=== PATIENT | male | born 1955 | race Caucasian/White ===

== ENCOUNTER → 2016-10-29 | Outpatient (CLI) | payer OTHER ==
--- NOTE | 2016-10-29 13:06 | CT ---
EXAMINATION TYPE: CT chest wo con DATE OF EXAM: 10/29/2016 1:00 PM COMPARISON: 11/24/2010 HISTORY: 61-year-old male solitary pulmonary nodule TECHNIQUE: Contiguous axial scanning of the chest without IV contrast. Coronal and sagittal reconstru ctions performed. CT DLP: 444.0 mGycm Automated exposure control for dose reduction was used. FINDINGS: The heart is normal size with trace anterior pericardial thickening/fluid. The ascending aorta is borderline ectatic at 3.6 cm. Conventional arch vessel branching anatomy is no elijah. Nonenlarged calcified and noncalcified mediastinal lymph nodes are present. No thoracic lymphadenopat hy by CT size criteria. Trace bilateral gynecomastia incidentally noted. Large calcified granuloma within the left upper lobe measuring 1.6 cm axial image 20. Smaller central ly calcified subpleural pulmonary granuloma posterior right mid to lower lung axial image 37. Both of these are unchanged. Tiny hyperdensity 2 mm pulmonary nodule peripheral left lower lobe axial image 41 likely calcified gr anuloma as well. No consolidation or pleural effusion. Tiny hiatal hernia. Visualized upper abdomen shows cholecystectomy clips and a 4 mm nonobstructive le ft midpole renal calculus as well as a calcified granuloma within the spleen. Bones: No osseous destructive process. IMPRESSION: 1. PRIOR GRANULOMATOUS DISEASE WITH 2 DOMINANT CALCIFIED GRANULOMAS IN THE LUNGS MEASURING UP TO 1.5 CM. NO SUSPICIOUS PULMONARY NODULE. 2. TINY HIATAL HERNIA AND A 4 MM NONOBSTRUCTIVE LEFT RENAL CALCULUS.
--- NOTE | 2016-10-29 13:20 | CT ---
EXAMINATION TYPE: CT abdomen pelvis w con DATE OF EXAM: 10/29/2016 1:00 PM COMPARISON: 03/04/2016 HISTORY: 61-year-old male with mid Left sided pain in the mornings. TECHNIQUE: Contiguous axial scanning of the abdomen and pelvis following administration of 100 ml Omn ipaque 300 IV contrast. Delayed images through the kidneys and coronal/sagittal reconstructions perf ormed. CT DLP: 1458.8 mGycm Automated exposure control for dose reduction was used. FINDINGS: The chest is reported separately. Tiny hiatal hernia. Stable 1 cm enhancing focus anterior hepatic dome suggestive of flash filling hemangioma or vascular shunting. Also stable 1.4 cm hypodense area within the superior caudate lobe. Stability from December 03, 2015 sugge sts a benign etiology such as a complicated cyst or area of focal fat. Portal venous system is patent. No biliary ductal dilatation. Cholecystectomy clips. Adrenal glands, right kidney, spleen with calcified granuloma, and pancreas show no gross abnormality . A 4 mm nonobstructive left midpole renal calculus is noted. Prominent 8 mm peripancreatic lymph node in the upper abdomen remains stable suggesting a chronic pos tinflammatory etiology. A few scattered prominent but nonenlarged mesenteric lymph nodes are also st able. No dilated small bowel, free fluid, or free air. The previously mentioned focal thickening along the ascending colon is stable to decreased in the interval. Oral contrast has progressed to the splenic f lexure. There is mild scattered stool and a couple diverticula in the left colon. No pericolonic infl ammatory change. Bladder is urine distended. Prostate gland mildly enlarged at 4.6 cm wide. No abnormal fluid collecti on in the pelvis or pelvic lymphadenopathy. Bones: Mild degenerative changes at the hips and SI joints. Additional degenerative disc disease at L 5-S1. No osseous destructive process. IMPRESSION: 1. NO ACUTE INFLAMMATORY PROCESS IDENTIFIED TO EXPLAIN THE PATIENT'S PAIN. 2. A 1.4 CM HYPODENSE LESION IN THE CAUDATE LOBE OF THE LIVER IS STABLE SUGGESTING A BENIGN ETIOLOGY SUCH A COMPLICATED CYST OR AREA OF FOCAL FAT. 3. THE PREVIOUS FOLD THICKENING ALONG THE ASCENDING COLON IS STABLE TO SLIGHTLY DECREASED MAKING THIS OF QUESTIONABLE CLINICAL SIGNIFICANCE. ROUTINE SCREENING COLONOSCOPY CAN MONITOR IN THE EVENT OF UND ERLYING POLYPS. 4. SMALL HIATAL HERNIA, NONOBSTRUCTIVE 4 MM LEFT RENAL CALCULUS AND MILD PROSTATOMEGALY.
== END | disposition home or self-care (01) ==
LOC: RADCTMAIN 12:27
PROVIDERS: ATTEND Family Medicine
DX: K76.9 Liver disease, unspecified (principal); K44.9 Diaphragmatic hernia without obstruction or gangrene; N20.0 Calculus of kidney; N40.0 Benign prostatic hyperplasia without lower urinary tract symptoms; R91.1 Solitary pulmonary nodule
CPT/HCPCS: 71250; 74177; Q9967

== ENCOUNTER → 2017-10-21 | Outpatient (CLI) | payer OTHER ==
--- NOTE | 2017-10-21 13:39 | US ---
EXAMINATION TYPE: US extremity nonvasculr ltd LT DATE OF EXAM: 10/21/2017 COMPARISON: NONE CLINICAL HISTORY: S60.552A Superficial foreign body of left hand; wood sliver left palm pad at base o f thumb x 4 days; foreign body unable to be extracted at physician's office US findings: at left palm pad at base of first digit is linear hyperechoic area noted initially on Tr ansverse view showing posterior shadowing. Hyperechoic linear area = 1.3cm long and better imaged wit h harmonics feature and noted within 0.5cm from skin line. IMPRESSION: Linear foreign body is confirmed as detailed above located in the superficial aspect of the palmar muscles at area of clinical concern in the left hand.
== END | disposition home or self-care (01) ==
LOC: RADUSWWP 12:50
PROVIDERS: ATTEND Family Medicine
DX: S60.552A Superficial foreign body of left hand, initial encounter (principal)

== ENCOUNTER → 2018-05-23 | Outpatient (CLI) | payer OTHER ==
--- NOTE | 2018-05-23 14:35 | CT ---
EXAMINATION TYPE: CT sinus wo con DATE OF EXAM: 05/23/2018 COMPARISON: None HISTORY: Patient complains of left side sinus pressure and known nasal polyps. CT DLP: 624.5 mGycm. Automated Exposure Control for Dose Reduction was Utilized. TECHNIQUE: CT scan of the sinuses is performed without contrast, axial images are obtained, coronal r eformatted images are also reviewed. FINDINGS: There is mild mucosal thickening involving the maxillary sinuses with moderate changes invo lving the ethmoid air cells. There is a nasal septal deviation. Rounded soft tissue densities in the posterior nasopharynx on the right may been the basis of polyps correlate clinically to exclude other etiologies. Frontal sinus is clear. Very mild mucosal thickening involving the sphenoid sinus. Oropharynx and nasopharynx symmetric. Visualized parotid glands within normal limits. Osseous structures intact. No air-fluid levels. Intraorbital structures are symmetric. The ostiomeatal complex is patent bilater ally on the coronal images. Visualized portion of mastoid air cells show mild mastoiditis. IMPRESSION: 1. Moderate ethmoidal chronic sinusitis. 2. Mild maxillary chronic sinusitis. 3. Soft tissue density in the posterior nasopharynx on the right may represent sinonasal polyposis. C orrelate clinically to exclude other etiologies including mucosal lesion. 4. Mild chronic mastoiditis
== END | disposition home or self-care (01) ==
LOC: RADCTMAIN 11:03
PROVIDERS: ATTEND Otolaryngology
DX: J32.0 Chronic maxillary sinusitis (principal); J32.2 Chronic ethmoidal sinusitis; H70.10 Chronic mastoiditis, unspecified ear
CPT/HCPCS: 70486

== ENCOUNTER 2018-06-15 04:03 | Emergency (ER) | payer OTHER ==
[2018-06-15] MEDS ORDERED: ONDANSETRON 4 MG/2 ML VIAL IVP STA (04:28)
--- NOTE | 2018-06-15 04:50 | ED ---
Abdominal Pain HPI - General Chief Complaint: Abdominal Pain Stated Complaint: abd pain Time Seen by Provider: 06/15/18 04:17 Source: patient Mode of arrival: ambulatory Limitations: no limitations - History of Present Illness Initial Comments: Campbell is a 63-year-old gentleman who presents the emergency department today for evaluation of severe left lower quadrant abdominal pain. Patient reports that he was in his usual state of health yesterday, around 8 PM he developed left lower quadrant abdominal pain, pain is persisted throughout the night, around 2 AM he attempted to give himself an enema and had a small bowel movement with no relief in his pain. At which time he decided to come to the ER for further evaluation. Pain is described as sharp, stabbing, constant with no relieving factors. It's associated with nausea and a few episodes of nonbloody nonbilious emesis. Pain radiates from the left lower quadrant to the left flank is not associated with any dysuria or hematuria. Patient has no history of kidney stones that he is aware of. Patient does report he had a colonoscopy a couple years ago and was advised that he had diverticulosis but is never had diverticulitis. Patient denies any associated fevers, chills, chest pain palpitations or shortness of breath. - Related Data Home Medications Medication Instructions Recorded Confirmed Olmesartan [Benicar] 20 mg PO QAM 09/18/14 06/15/18 Omeprazole [PriLOSEC] 40 mg PO AC-BRKFST 09/18/14 06/15/18 Simvastatin [Zocor] 20 mg PO DAILY 09/18/14 06/15/18 Aspirin 81 mg PO DAILY 03/21/15 06/15/18 Ibuprofen [Motrin] 600 mg PO DAILY PRN 03/21/15 06/15/18 traMADol HCl [Ultram] 50 mg PO Q6H PRN 03/21/15 06/15/18 Previous Rx's Medication Instructions Recorded Ibuprofen [Motrin] 800 mg PO TID #30 tab 06/15/18 Ondansetron [Zofran ODT] 4 mg PO Q8HR #12 tab 06/15/18 Tamsulosin [Flomax] 0.4 mg PO DAILY #7 cap 06/15/18 Allergies Allergy/AdvReac Type Severity Reaction Status Date / Time codeine AdvReac Nausea & Verified 06/15/18 04:08 Vomiting hydrocodone bitartrate AdvReac Nausea & Verified 06/15/18 04:08 [From [place]] Vomiting Review of Systems ROS Statement: Those systems with pertinent positive or pertinent negative responses have been documented in the HPI. ROS Other: All systems not noted in ROS Statement are negative. Past Medical History Past Medical History: GERD/Reflux, Hyperlipidemia, Hypertension Additional Past Medical History / Comment(s): pneumothorax History of Any Multi-Drug Resistant Organisms: None Reported Past Surgical History: Cholecystectomy, Orthopedic Surgery Additional Past Surgical History / Comment(s): left thumb ligament reattached, rt rot cuff repair Past Anesthesia/Blood Transfusion Reactions: No Reported Reaction Past Psychological History: No Psychological Hx Reported Smoking Status: Former smoker Past Alcohol Use History: None Reported Past Drug Use History: None Reported - Past Family History Father Family Medical History: Coronary Artery Disease (CAD) Mother Family Medical History: Cancer General Exam - General Exam Comments Initial Comments: Physical Exam GENERAL: Uncomfortable appearing gentleman HENT: Normocephalic, Atraumatic. EYES: PERRL, EOMI PULMONARY: Unlabored respirations. No audible rales rhonchi or wheezing was noted. CARDIOVASCULAR: There is a regular rate and rhythm without any murmurs gallops or rubs. ABDOMEN: Soft with tenderness to the left lower quadrant, no tenderness in the left flank or suprapubic region SKIN: Skin is flushed there is no lesions or rashes : Deferred NEUROLOGIC: Patient is alert and oriented x3. Moving all extremities spontaneously MUSCULOSKELETAL: Normal extremities with adequate strength and full range of motion. No lower extremity swelling or edema. No calf tenderness. PSYCHIATRIC: Normal psychiatric evaluation. Limitations: no limitations Limitations: no limitations Course Vital Signs 06/15/18 04:04 Temperature 97.8 F Pulse Rate 99 Respiratory 20 Rate Blood Pressure 151/90 O2 Sat by Pulse 100 Oximetry Medical Decision Making - Medical Decision Making Patient was seen and evaluated, history is obtained from the patient as well as what bedside Patient presenting with severe left lower quadrant abdominal pain not relieved by a bowel movement History and physical exam are concerning for possible diverticulitis as the patient does report a history of diverticulosis identified on colonoscopy Labs and imaging were ordered Zofran was ordered for nausea Declined any narcotic pain medication as he has a history of severe reactions involving nausea vomiting and he would prefer to avoid this CT resulted with a 4 mm distal stone with mild hydro- Labs were unremarkable Toradol was ordered for pain She was reevaluated reports that the Toradol has really knocked out his pain is feeling much better, nausea is resolved. Patient was updated on findings of 4 mm stone. Patient agreeable for plan for discharge home, again declines any oral narcotics, will be prescribed Motrin, Flomax, Zofran ordered return parameters were discussed. All questions pertaining care were answered patient was discharged home in stable condition. - Lab Data Result diagrams: 06/15/18 04:38 06/15/18 04:38 Lab Results 06/15/18 06/15/18 06/15/18 Range/Units 04:38 04:38 04:38 WBC 6.4 (3.8-10.6) k/uL RBC 5.26 (4.30-5.90) m/uL Hgb 16.1 (13.0-17.5) gm/dL Hct 47.6 (39.0-53.0) % MCV 90.6 (80.0-100.0) fL MCH 30.5 (25.0-35.0) pg MCHC 33.7 (31.0-37.0) g/dL RDW 12.0 (11.5-15.5) % Plt Count 201 (150-450) k/uL Neutrophils % 60 % Lymphocytes % 26 % Monocytes % 7 % Eosinophils % 5 % Basophils % 1 % Neutrophils # 3.8 (1.3-7.7) k/uL Lymphocytes # 1.6 (1.0-4.8) k/uL Monocytes # 0.5 (0-1.0) k/uL Eosinophils # 0.3 (0-0.7) k/uL Basophils # 0.0 (0-0.2) k/uL Sodium 141 (137-145) mmol/L Potassium 3.8 (3.5-5.1) mmol/L Chloride 107 (98-107) mmol/L Carbon Dioxide 25 (22-30) mmol/L Anion Gap 9 mmol/L BUN 20 (9-20) mg/dL Creatinine 1.13 (0.66-1.25) mg/dL Est GFR (CKD-EPI)AfAm 80 (>60 ml/min/1.73 sqM) Est GFR (CKD-EPI)NonAf 69 (>60 ml/min/1.73 sqM) Glucose 118 H (74-99) mg/dL Plasma Lactic Acid Jimmy 1.8 (0.7-2.0) mmol/L Calcium 9.3 (8.4-10.2) mg/dL Total Bilirubin 0.5 (0.2-1.3) mg/dL AST 20 (17-59) U/L ALT 34 (21-72) U/L Alkaline Phosphatase 57 (38-126) U/L Total Protein 6.4 (6.3-8.2) g/dL Albumin 3.9 (3.5-5.0) g/dL Amylase 40 (30-110) U/L Lipase 101 (23-300) U/L Urine Color Urine Appearance (Clear) Urine pH (5.0-8.0) Ur Specific [place] (1.001-1.035) Urine Protein (Negative) Urine Glucose (UA) (Negative) Urine Ketones (Negative) Urine Blood (Negative) Urine Nitrite (Negative) Urine Bilirubin (Negative) Urine Urobilinogen (<2.0) mg/dL Ur Leukocyte Esterase (Negative) Urine RBC (0-5) /hpf Urine WBC (0-5) /hpf Urine Mucus (None) /hpf 06/15/18 Range/Units 05:41 WBC (3.8-10.6) k/uL RBC (4.30-5.90) m/uL Hgb (13.0-17.5) gm/dL Hct (39.0-53.0) % MCV (80.0-100.0) fL MCH (25.0-35.0) pg MCHC (31.0-37.0) g/dL RDW (11.5-15.5) % Plt Count (150-450) k/uL Neutrophils % % Lymphocytes % % Monocytes % % Eosinophils % % Basophils % % Neutrophils # (1.3-7.7) k/uL Lymphocytes # (1.0-4.8) k/uL Monocytes # (0-1.0) k/uL Eosinophils # (0-0.7) k/uL Basophils # (0-0.2) k/uL Sodium (137-145) mmol/L Potassium (3.5-5.1) mmol/L Chloride (98-107) mmol/L Carbon Dioxide (22-30) mmol/L Anion Gap mmol/L BUN (9-20) mg/dL Creatinine (0.66-1.25) mg/dL Est GFR (CKD-EPI)AfAm (>60 ml/min/1.73 sqM) Est GFR (CKD-EPI)NonAf (>60 ml/min/1.73 sqM) Glucose (74-99) mg/dL Plasma Lactic Acid Jimmy (0.7-2.0) mmol/L Calcium (8.4-10.2) mg/dL Total Bilirubin (0.2-1.3) mg/dL AST (17-59) U/L ALT (21-72) U/L Alkaline Phosphatase (38-126) U/L Total Protein (6.3-8.2) g/dL Albumin (3.5-5.0) g/dL Amylase (30-110) U/L Lipase (23-300) U/L Urine Color Yellow Urine Appearance Clear (Clear) Urine pH 5.0 (5.0-8.0) Ur Specific [place] 1.050 H (1.001-1.035) Urine Protein Negative (Negative) Urine Glucose (UA) Negative (Negative) Urine Ketones Negative (Negative) Urine Blood Moderate H (Negative) Urine Nitrite Negative (Negative) Urine Bilirubin Negative (Negative) Urine Urobilinogen <2.0 (<2.0) mg/dL Ur Leukocyte Esterase Negative (Negative) Urine RBC 49 H (0-5) /hpf Urine WBC 32 H (0-5) /hpf Urine Mucus Rare H (None) /hpf Disposition Clinical Impression: Kidney stone on left side Disposition: HOME SELF-CARE Condition: Good Prescriptions: Ibuprofen [Motrin] 800 mg PO TID #30 tab Ondansetron [Zofran ODT] 4 mg PO Q8HR #12 tab Tamsulosin [Flomax] 0.4 mg PO DAILY #7 cap Is patient prescribed a controlled substance at d/c from ED?: No Referrals: Sade Esteves MD [Primary Care Provider] - 1-2 days
[2018-06-15 04:52] LABS: Basophils % (A) 1 %; Eosinophils # (A) 0.3 k/uL (0-0.7); Eosinophils % (A) 5 %; HCT 47.6 % (39.0-53.0); HGB 16.1 gm/dL (13.0-17.5); Lymphocytes # (A) 1.6 k/uL (1.0-4.8); Lymphocytes % (A) 26 %; MCH 30.5 pg (25.0-35.0); MCHC 33.7 g/dL (31.0-37.0); MCV 90.6 fL (80.0-100.0); Mean Platelet Volume 7.2; Monocytes # (A) 0.5 k/uL (0-1.0); Monocytes % (A) 7 %; Neutrophils # (A) 3.8 k/uL (1.3-7.7); Neutrophils % (A) 60 %; Platelet Count 201 k/uL (150-450); RBC 5.26 m/uL (4.30-5.90); WBC 6.4 k/uL (3.8-10.6)
[2018-06-15 05:04] LABS: Albumin 3.9 g/dL (3.5-5.0); Calcium 9.3 mg/dL (8.4-10.2); Potassium 3.8 mmol/L (3.5-5.1); Total Bilirubin 0.5 mg/dL (0.2-1.3); Total Protein 6.4 g/dL (6.3-8.2)
--- NOTE | 2018-06-15 05:09 | CT ---
EXAMINATION TYPE: CT abdomen pelvis w con DATE OF EXAM: 06/15/2018 COMPARISON: 10/29/2016 HISTORY: LLQ abdominal pain CT DLP: 976.6 mGycm Automated exposure control for dose reduction was used. TECHNIQUE: Helical acquisition of images was performed from the lung bases through the pelvis. CONTRAST: Performed without Oral Contrast and with IV Contrast, patient injected with 100mL mL of Isovue 300. FINDINGS: There is some mild atelectasis at the posterior lung bases. Heart size is normal. There is no pericar dial effusion. There is no pleural effusion. Liver shows no focal defect. There are clips from cholec ystectomy. Bile ducts are not dilated. There is mild hiatal hernia. Spleen has normal size. There are small calcified splenic granuloma. There is no evidence of pancreatic mass. There is no adrenal mass. Kidneys show satisfactory contrast opacification. There is left side hydron ephrosis and hydroureter. There is 4 mm calculus in the distal left ureter. Bladder distends smoothly . There is no inguinal hernia. There is no free fluid in the pelvis. Prostate measures 4.8 cm. I see no intestinal wall thickening. There are no dilated loops. Appendix is not definitely seen. The re is no sign of appendicitis. There is 4 mm calculus in the lateral left kidney. There is 3 mm calcu gil lateral right kidney. I see no bony destructive process. There is narrowing of L5-S1 disc space. There is no mesenteric edema or adenopathy. IMPRESSION: Bilateral renal calculi. Obstructing calculus in the distal left ureter with hydronephrosis. Obstruct ion appears new compared to old exam. IMPRESSION:
[2018-06-15] MEDS ORDERED: KETOROLAC 30 MG/ML 1 ML VIAL IVP STA (05:14)
[2018-06-15 05:51] LABS: Appearance,Urine Clear (Clear); Bilirubin,Urine Negative (Negative); Blood,Urine Moderate (Negative); Color,Urine Yellow; Glucose,Urine (UA) Negative (Negative); Ketones,Urine Negative (Negative); Leukocyte Esterase,Urine Negative (Negative); Mucus,Urine Rare /hpf; Nitrite,Urine Negative (Negative); Protein,Urine Negative (Negative); RBC,Urine 49 /hpf (0-5); Urobilinogen,Urine <2.0 mg/dL (<2.0); WBC,Urine 32 /hpf (0-5)
[2018-06-15 06:02] VITALS: BP 131/94; PULSE 863; RESP 16; TEMP 98.4
== END 2018-06-15 06:05 | disposition home or self-care (01) ==
LOC: EC 04:03
DX: N13.2 Hydronephrosis with renal and ureteral calculous obstruction (principal); K21.9 Gastro-esophageal reflux disease without esophagitis; E78.5 Hyperlipidemia, unspecified; I10 Essential (primary) hypertension; Z79.82 Long term (current) use of aspirin; Z79.899 Other long term (current) drug therapy; Z88.5 Allergy status to narcotic agent; Z90.49 Acquired absence of other specified parts of digestive tract; Z87.891 Personal history of nicotine dependence
CPT/HCPCS: 36415; 80053; 82150; 83605; 83690; 85025; 81001; 87040; 74177; 99284; 96374; 96375; J2405; J1885; Q9967

== ENCOUNTER → 2018-12-19 | Outpatient (CLI) | payer OTHER ==
--- NOTE | 2018-12-19 08:19 | CT ---
EXAMINATION TYPE: CT chest w con DATE OF EXAM: 12/19/2018 COMPARISON: 10/29/2016 and 11/24/2010 HISTORY: 63-year-old male abnormal findings lung field, Pulmonary nodules TECHNIQUE: Contiguous axial scanning of the chest after the administration of 100 mL of Isovue 300. Coronal/sagittal reconstructions performed. CT DLP: 569mGycm. Automatic exposure control utilized for a dose reduction. FINDINGS: Heart normal size with small anterior pericardial fluid, probably physiologic. Ascending aorta mildly ectatic at 3.6 cm. Convention arch vessel branching anatomy. Scattered nonenlarged mediastinal lymph nodes are present. Some of these show interval decrease in si ze from 10/29/2016, for example, a prevascular space lymph node measuring 4 mm versus 6 cm, previously . A few of the lymph nodes are calcified compatible with prior granulomatous disease. Stable pulmonary nodule posterior left upper lobe showing dense uniform calcification measuring 1.5 c m compatible with a calcified granuloma. Also, stable 9 mm subpleural centrally calcified pulmonary n odule posterior right lower lobe also compatible with a calcified granuloma. No consolidation or pleural effusion. Tiny hiatal hernia. Visualized upper abdomen shows cholecystectomy clips and a calcified granuloma wi thin the spleen. Bones: No osseous destructive process. IMPRESSION: 1. Redemonstrated changes of prior granulomatous disease. No new suspicious pulmonary nodule. 2. Tiny hiatal hernia.
== END | disposition home or self-care (01) ==
LOC: RADCTMAIN 06:36
PROVIDERS: ATTEND Family Medicine
DX: R91.8 Other nonspecific abnormal finding of lung field (principal); K44.9 Diaphragmatic hernia without obstruction or gangrene
CPT/HCPCS: 71260; Q9967

== ENCOUNTER → 2020-12-19 | Outpatient (CLI) | payer MEDICARE, OTHER ==
--- NOTE | 2020-12-19 15:11 | CT ---
EXAMINATION TYPE: CT sinus wo con DATE OF EXAM: 12/19/2020 COMPARISON: Sinus CT May 23, 2018 HISTORY: Chronic sinusitis and polyps. Sinus blockage for years per patient. CT DLP: 657 mGycm. Automated Exposure Control for Dose Reduction was Utilized. TECHNIQUE: CT scan of the sinuses is performed without contrast, axial images are obtained, coronal r eformatted images are also reviewed. FINDINGS: Mild mucosal thickening bilateral maxillary sinuses greatest inferiorly slightly more promi nent from prior study. Moderate mucosal thickening and patchy opacification bilateral ethmoid sinuses more prominent from prior study. Mild mucosal thickening and possible tiny mucous retention cysts an d/or polyps inferior right frontal sinus slightly worsened from prior. Left frontal sinus clear. Sphe noid sinuses show mild to minimal peripheral mucosal thickening bilaterally similar to prior. The ost iomeatal complex is patent on the right on coronal image 30 but occluded on the left. Visualized portion of mastoid air cells show persistent patchy opacification and sclerosis of the rig ht mastoid air cells unchanged from prior favoring product of chronic mastoiditis. The globes are in tact bilaterally. IMPRESSION: Suspect some acute bilateral ethmoid sinus disease on background chronic paranasal sinus disease. Findings worse from 2018 study as detailed above.
== END | disposition home or self-care (01) ==
LOC: RADCTMAIN 14:20
PROVIDERS: ATTEND Otolaryngology
DX: J32.4 Chronic pansinusitis (principal)
CPT/HCPCS: 70486

== ENCOUNTER 2021-01-22 05:36 | Day surgery (SDC) | payer MEDICARE, OTHER ==
[2021-01-21 09:22] VITALS: BMI 28.2
[~2021-01-22 05:36] MED LIST: DEXAMETHASONE SOD PHOSPHATE 4 MG/ML 1 ML VIAL IV ONE; DEXAMETHASONE SOD PHOSPHATE 4 MG/ML 1 ML VIAL IV PRN; FAMOTIDINE 20 MG/2 ML VIAL IV PRN; LIDOCAINE 1% (10MG/ML) FOR IV START INTRADERMA PRN; MIDAZOLAM 2 MG/2 ML VIAL IV PRN; ONDANSETRON 4 MG/2 ML VIAL IVP ONE; ONDANSETRON 4 MG/2 ML VIAL IVP PRN; OXYMETAZOLINE 0.05% NASL SPRAY 1 SPRAY BOTTLE EA NOSTRIL PRN
[2021-01-22] MEDS: LACTATED RINGERS 1,000 ML IV SCH ×2 (06:32→09:40)
[2021-01-22] MEDS ORDERED: SUCCINYLCHOLINE CHLORIDE 100 MG/5 ML SYR IV ONE (06:58)
[2021-01-22] MEDS ORDERED: GLYCOPYRROLATE 0.2 MG/ML 2 ML VIAL ONE (06:58)
[2021-01-22] MEDS ORDERED: ceFAZolin 1,000 MG VIAL ONE (06:58)
[2021-01-22] MEDS ORDERED: PROPOFOL 10 MG/ML 20 ML VIAL IV ONE (06:58)
[2021-01-22] MEDS ORDERED: LIDOCAINE 1% INJ 10MG/ML (20 ML MDV) ONE (06:58)
[2021-01-22] MEDS ORDERED: .MORPHINE SULFATE (INJ) 10 MG/ML SYRINGE ONE (06:58)
[2021-01-22] MEDS ORDERED: DENOSUMAB 60 MG/ML 1 ML SYRINGE SQ ONE (06:58)
[2021-01-22] MEDS ORDERED: MIDAZOLAM 2 MG/2 ML VIAL ONE (06:58)
[2021-01-22] MEDS ORDERED: HYDROmorphone 0.5 MG/0.5 ML SYRINGE IVP PRN (07:00)
[2021-01-22] MEDS ORDERED: LIDOCAINE 1%-EPI 1:100,000 20 ML VIAL SQ ONE ×2 (07:13)
[2021-01-22] MEDS ORDERED: BACITRACIN ZINC 500 UNIT/GM OINT 28.4 GM TUBE TOPICAL ONE ×2 (07:23→07:29)
--- NOTE | 2021-01-22 08:12 | P.OP ---
Date of Procedure: 01/22/21 Preoperative Diagnosis: Deviated nasal septum Inferior turbinate hypertrophy Chronic sinusitis Sinonasal polyposis Postoperative Diagnosis: Same Procedure(s) Performed: Septoplasty Outfractured and submucous resection inferior turbinates Bilateral endoscopic sinus surgery with polypectomy including bilateral maxillary antrostomy with removal of tissue from the maxillary sinus, bilateral anterior and posterior ethmoidectomy, bilateral frontal sinusotomy with exploration and removal of tissue Anesthesia: LYRIC Surgeon: Eris Husain Estimated Blood Loss (ml): 10 Pathology: other (Nasal septal bone and cartilage and sinus contents) Condition: stable Disposition: PACU Indications for Procedure: This 65-year-old white male with chronic congestion nasally as well as chronic nasal airway obstruction and facial pain and pressure with recurrent sinusitis Operative Findings: Nasal septum deviated left the inferior turbinates are hypertrophied bilaterally moderate-sized polyps lateral medial to the middle turbinates bilaterally, obstruction of the ostial complexes bilaterally polyps in the maxillary sinuses and mucosal thickening throughout the anterior posterior ethmoid sinuses as well as frontal sinuses Description of Procedure: The patient was brought into the operative suite and placed in a supine position. The patient underwent induction of general anesthesia with oral endotracheal intubation without difficulty. The patient was prepped and draped in the usual aseptic fashion with the orbits in the operating field for monitoring to the case and the computed tomography scan was on the computer screen for review throughout the case. 1% lidocaine with 1 :100,000 epinephrine was infused submucosally into both sides of the nasal septum as well as the lateral nasal wall and anterior tips of the middle turbinates. While this was taking vasoconstrictive effect the inferior turbinates were infractured with Edwards elevator and partial submucous resection of the inferior turbinates was performed with a portion of the submucosal soft tissue and the inferior turbinate bone removed with Coblation device. The inferior turbinates were then outfractured with the Edwards elevator. A left hemitransfixion incision was then made with the mucoperichondrial and mucoperiosteal flap on the left elevated. The bony cartilaginous junction was disarticulated and the mucoperiosteal flap on the right was elevated. Bony n warren septal deformities were removed with Alice forceps and an inferior cartilaginous strip was removed leaving a full 1.5 cm caudal strut. Checking intranasally this corrected the nasoseptal deformities and the hemitransfixion incision was closed with a running 4-0 chromic suture. Full 0 endoscopic examination is performed bilaterally. Beginning on the left, the middle turbinate was medialized. The maxillary ostium was located with a ballpoint probe and an infundibulotomy was performed followed by uncinectomy. The maxillary antrostomy was enlarged at the expense of the anterior and posterior fontanelle taking care anteriorly not to injure the lacrimal bone. The maxillary sinus was evaluated with 30 and 70 endoscope .[Abnormal appearing tissue was removed from the maxillary sinus]. Anterior and posterior ethmoidectomy were then performed from anterior to posterior to the level of the skull base. The roof of the anterior ethmoid air cells were then cleaned from posterior to anterior using up-biting Blakesley forceps. The frontal sinus ostium was then located and opened with up-biting Blakesley forceps and curved suction and then thickened mucosa removed under 30 and 70 endoscopic evaluation. The sinus was then explored.. Attention was then turned to the right where the procedures were followed as they had been on the left. [Nasopore nasal dressing was placed in the middle meatus bilaterally under direct visualization]. Bilateral Nur airway splints coated with bacitracin ointment were placed and sutured transseptally with a 4-0 nylon suture. The patient was suctioned in oral gastric fashion and was allowed to emerge from general anesthesia having tolerated procedure well and was extubated in the operating suite and transferred to the postoperative recovery area in satisfactory condition.
[2021-01-22 08:26] VITALS: TEMP 97.3
[2021-01-22] MEDS ORDERED: diphenhydrAMINE 50 MG/ML 1 ML VIAL IVP ONE (08:53)
[2021-01-22] MEDS ORDERED: PROMETHAZINE INJ 25 MG/ML 1 ML VIAL IVPB ONE (09:18)
[2021-01-22 11:39] VITALS: BP 137/77; PULSE 70; RESP 16
== END 2021-01-22 14:03 | disposition home or self-care (01) ==
LOC: OR 05:36
PROVIDERS: ATTEND Otolaryngology
DX: J34.2 Deviated nasal septum (principal); J34.3 Hypertrophy of nasal turbinates; J32.9 Chronic sinusitis, unspecified; J33.8 Other polyp of sinus; E78.00 Pure hypercholesterolemia, unspecified; G21.9 Secondary parkinsonism, unspecified; I10 Essential (primary) hypertension; Z79.899 Other long term (current) drug therapy; Z79.82 Long term (current) use of aspirin; Z88.5 Allergy status to narcotic agent; Z87.891 Personal history of nicotine dependence; K44.9 Diaphragmatic hernia without obstruction or gangrene; E78.5 Hyperlipidemia, unspecified; J45.909 Unspecified asthma, uncomplicated
CPT/HCPCS: 88305; 88300; 31267; 31253; J2250; J1200; J1100; J2550; J2270; J2405; J0690; J2001; J0897; J0330; J2704; J1170; J1790

== ENCOUNTER 2021-04-17 10:42 | Emergency (ER) | payer MEDICARE, OTHER ==
[2021-04-17 10:47] VITALS: RESP 18; TEMP 97.8
[2021-04-17] MEDS ORDERED: KETOROLAC 15 MG/ML 1 ML VIAL IVP STA ×2 (11:04→13:59)
[2021-04-17 11:16] LABS: Basophils % (A) 1 %; Eosinophils # (A) 0.2 k/uL (0-0.7); Eosinophils % (A) 4 %; HCT 51.8 % (39.0-53.0); HGB 17.9 gm/dL (13.0-17.5); Lymphocytes # (A) 0.7 k/uL (1.0-4.8); Lymphocytes % (A) 18 %; MCH 31.5 pg (25.0-35.0); MCHC 34.6 g/dL (31.0-37.0); MCV 91.1 fL (80.0-100.0); Mean Platelet Volume 7.3; Monocytes # (A) 0.3 k/uL (0-1.0); Monocytes % (A) 7 %; Neutrophils # (A) 2.9 k/uL (1.3-7.7); Neutrophils % (A) 69 %; Platelet Count 219 k/uL (150-450); RBC 5.69 m/uL (4.30-5.90); RDW 12.6 % (11.5-15.5); WBC 4.2 k/uL (3.8-10.6)
[2021-04-17 11:26] LABS: Albumin 4.2 g/dL (3.5-5.0); Calcium 9.6 mg/dL (8.4-10.2); Potassium 4.1 mmol/L (3.5-5.1); Total Bilirubin 0.8 mg/dL (0.2-1.3); Total Protein 7.1 g/dL (6.3-8.2)
--- NOTE | 2021-04-17 11:26 | XR ---
EXAMINATION TYPE: XR KUB DATE OF EXAM: 04/17/2021 COMPARISON: NONE HISTORY: Pain TECHNIQUE: One view abdominal series FINDINGS: The osseous structures are intact. The bowel gas pattern is nonspecific. Surgical clips right upper quadrant. Hypertrophic changes of the acetabulum can be associated with femoral acetabular impingemen t. No definite suspicious calcifications noted.. IMPRESSION: 1. Nonspecific abdomen.
--- NOTE | 2021-04-17 11:41 | ED ---
Abdominal Pain HPI - General Chief Complaint: Abdominal Pain Stated Complaint: poss kidney stone Time Seen by Provider: 04/17/21 10:46 Source: patient, RN notes reviewed Mode of arrival: ambulatory Limitations: no limitations - History of Present Illness Initial Comments: 65-year-old male with a prior history kidney stones and states for the past couple days she's had some pain over the right lateral flank area no nausea no vomiting fevers chills sweats no hematuria. He states it feels similar to previous kidney stone pain. Somewhat dull achy in nature. Approximately 7/10 severity but complains no other modifying factors no fevers chills sweats MD Complaint: abdominal pain, flank pain - Related Data Home Medications Medication Instructions Recorded Confirmed Simvastatin [Zocor] 20 mg PO HS 09/18/14 04/17/21 Baclofen 10 mg PO TID PRN 01/21/21 04/17/21 Losartan Potassium [Cozaar] 100 mg PO DAILY 01/21/21 04/17/21 Omeprazole [PriLOSEC] 20 mg PO AC-BRKFST 01/21/21 04/17/21 Acetaminophen Tab [Tylenol Tab] 1,000 mg PO Q6HR PRN 04/17/21 04/17/21 Sildenafil [Revatio] 20 mg PO DAILY PRN 04/17/21 04/17/21 Tamsulosin HCl [Flomax] 0.4 mg PO ONCE 04/17/21 04/17/21 Allergies Allergy/AdvReac Type Severity Reaction Status Date / Time fentanyl Allergy Nausea & Verified 04/17/21 11:11 Vomiting tramadol Allergy Nausea & Verified 04/17/21 11:11 Vomiting codeine AdvReac Nausea & Verified 04/17/21 11:11 Vomiting hydrocodone bitartrate AdvReac Nausea & Verified 04/17/21 11:11 [From [place]] Vomiting Review of Systems ROS Statement: Those systems with pertinent positive or pertinent negative responses have been documented in the HPI. ROS Other: All systems not noted in ROS Statement are negative. Past Medical History Past Medical History: Cancer, GERD/Reflux, Hyperlipidemia, Hypertension, Osteoarthritis (OA) Additional Past Medical History / Comment(s): pneumothorax, skin cancer-basal cell History of Any Multi-Drug Resistant Organisms: None Reported Past Surgical History: Cholecystectomy, Orthopedic Surgery Additional Past Surgical History / Comment(s): left thumb ligament reattached,rt rotator cuff repair, left knee surgery, basal cell removal - face Past Anesthesia/Blood Transfusion Reactions: No Reported Reaction Past Psychological History: No Psychological Hx Reported Smoking Status: Former smoker - Past Family History Mother Family Medical History: Cancer General Exam - General Exam Comments Initial Comments: This is a well-developed well-nourished awake alert oriented times 3 male Limitations: no limitations General appearance: alert, anxious Head exam: Present: atraumatic, normocephalic, normal inspection Eye exam: Present: normal appearance, PERRL, EOMI. Absent: scleral icterus, conjunctival injection, periorbital swelling ENT exam: Present: normal exam, mucous membranes moist Neck exam: Present: normal inspection, full ROM. Absent: tenderness, meningismus, lymphadenopathy Respiratory exam: Present: normal lung sounds bilaterally. Absent: respiratory distress, wheezes, rales, rhonchi, stridor Cardiovascular Exam: Present: regular rate, normal rhythm, normal heart sounds. Absent: systolic murmur, diastolic murmur, rubs, gallop, clicks GI/Abdominal exam: Present: soft, tenderness (Review my flank tenderness on the right no step-off no crepitation no guarding rebound masses or bruits), normal bowel sounds. Absent: distended, guarding, rebound, rigid Rectal exam: Present: deferred Extremities exam: Present: normal inspection, full ROM, normal capillary refill. Absent: tenderness, pedal edema, joint swelling, calf tenderness Back exam: Present: normal inspection, full ROM. Absent: CVA tenderness (R), CVA tenderness (L) Neurological exam: Present: alert, oriented X3, CN II-XII intact Psychiatric exam: Present: normal affect, normal mood Skin exam: Present: warm, dry, intact, normal color. Absent: rash Course Vital Signs 04/17/21 10:43 Temperature 97.8 F Pulse Rate 86 Respiratory 18 Rate Blood Pressure 150/88 O2 Sat by Pulse 97 Oximetry Medical Decision Making - Medical Decision Making Patient on reexamination was pain-free after a period time he does have Flomax at home he'll continue use and does have pain medication at home we did discuss the findings he will follow-up with his doctor return when necessary - Lab Data Result diagrams: 04/17/21 11:11 04/17/21 11:11 Lab Results 04/17/21 04/17/21 04/17/21 Range/Units 11:11 11:11 12:25 WBC 4.2 (3.8-10.6) k/uL RBC 5.69 (4.30-5.90) m/uL Hgb 17.9 H (13.0-17.5) gm/dL Hct 51.8 (39.0-53.0) % MCV 91.1 (80.0-100.0) fL MCH 31.5 (25.0-35.0) pg MCHC 34.6 (31.0-37.0) g/dL RDW 12.6 (11.5-15.5) % Plt Count 219 (150-450) k/uL MPV 7.3 Neutrophils % 69 % Lymphocytes % 18 % Monocytes % 7 % Eosinophils % 4 % Basophils % 1 % Neutrophils # 2.9 (1.3-7.7) k/uL Lymphocytes # 0.7 L (1.0-4.8) k/uL Monocytes # 0.3 (0-1.0) k/uL Eosinophils # 0.2 (0-0.7) k/uL Basophils # 0.0 (0-0.2) k/uL Sodium 139 (137-145) mmol/L Potassium 4.1 (3.5-5.1) mmol/L Chloride 105 (98-107) mmol/L Carbon Dioxide 26 (22-30) mmol/L Anion Gap 8 mmol/L BUN 18 (9-20) mg/dL Creatinine 1.10 (0.66-1.25) mg/dL Est GFR (CKD-EPI)AfAm 81 (>60 ml/min/1.73 sqM) Est GFR (CKD-EPI)NonAf 70 (>60 ml/min/1.73 sqM) Glucose 124 H (74-99) mg/dL Calcium 9.6 (8.4-10.2) mg/dL Total Bilirubin 0.8 (0.2-1.3) mg/dL AST 23 (17-59) U/L ALT 21 (4-49) U/L Alkaline Phosphatase 92 (38-126) U/L Total Protein 7.1 (6.3-8.2) g/dL Albumin 4.2 (3.5-5.0) g/dL Amylase 63 (30-110) U/L Lipase 97 (23-300) U/L Urine Color Yellow Urine Appearance Cloudy (Clear) Urine pH 5.5 (5.0-8.0) Ur Specific Rebuck 1.030 (1.001-1.035) Urine Protein 1+ H (Negative) Urine Glucose (UA) Negative (Negative) Urine Ketones Negative (Negative) Urine Blood Large H (Negative) Urine Nitrite Negative (Negative) Urine Bilirubin Negative (Negative) Urine Urobilinogen <2.0 (<2.0) mg/dL Ur Leukocyte Esterase Negative (Negative) Urine RBC >182 H (0-5) /hpf Urine WBC 7 H (0-5) /hpf Amorphous Sediment Rare H (None) /hpf Urine Mucus Few H (None) /hpf - Radiology Data Radiology results: report reviewed (Imaging reviewed evidence of a 4 mm stone in the distal right ureter with some minimal hydronephrosis and hydroureter patient complete report), image reviewed Disposition Clinical Impression: Kidney stone on right side, Renal colic on right side, Hematuria Disposition: HOME SELF-CARE Condition: Good Instructions (If sedation given, give patient instructions): Flank Pain (ED), Kidney Stones (ED), Renal Colic (ED) Additional Instructions: Home medications we discussed Is patient prescribed a controlled substance at d/c from ED?: No Referrals: Sade Esteves MD [Primary Care Provider] - 1-2 days
[2021-04-17 12:56] LABS: Amorphous Sediment,Urine Rare /hpf; Appearance,Urine Cloudy (Clear); Bilirubin,Urine Negative (Negative); Blood,Urine Large (Negative); Color,Urine Yellow; Glucose,Urine (UA) Negative (Negative); Ketones,Urine Negative (Negative); Leukocyte Esterase,Urine Negative (Negative); Mucus,Urine Few /hpf; Nitrite,Urine Negative (Negative); PH, Urine 5.5 (5.0-8.0); Protein,Urine 1+ (Negative); RBC,Urine >182 /hpf (0-5); Urobilinogen,Urine <2.0 mg/dL (<2.0); WBC,Urine 7 /hpf (0-5)
--- NOTE | 2021-04-17 13:04 | CT ---
EXAMINATION TYPE: CT abdomen pelvis wo con DATE OF EXAM: 04/17/2021 HISTORY: Right flank pain. History of kidney stones. CT DLP: 794.6 mGycm. Automated Exposure Control for Dose Reduction was Utilized. TECHNIQUE: CT scan of the abdomen and pelvis is performed without oral or IV contrast. COMPARISON: CT abdomen and pelvis June 15, 2018 FINDINGS: Within the limitations of a non-contrast study, the following observations are made. LUNG BASES: Stable 9 mm calcified subpleural nodule or granuloma posterior right lower lobe axial soren ge 4. Dependent atelectasis in the bases. Smaller calcified granuloma left lower lobe axial image 11 towards the periphery. LIVER/GB: Cholecystectomy clips are redemonstrated. Liver is heterogeneously hypodense consistent wit h diffuse fatty infiltration. PANCREAS: No significant abnormality is seen. SPLEEN: Single constipation anterior spleen redemonstrated. ADRENALS: No significant abnormality is seen. KIDNEYS: There is 1 to 2 mm nonobstructing left renal calculus mid to lower pole level coronal image 64. There is 1 to 2 mm nonobstructing right renal calculus mid to lower pole level coronal image 54. No or left-sided hydronephrosis. There is 4 mm distal right ureter calculus axial image 132 causing m ild right-sided hydronephrosis. No intraluminal calculi in the poorly distended bladder BOWEL: Stomach poorly distended and thus suboptimally evaluated. Occasional distal diverticula. No cox spicious small or large bowel dilatation. GENITAL ORGANS: No gross abnormality seen. LYMPH NODES: No greater than 1cm abdominal or pelvic lymph nodes are appreciated. OSSEOUS STRUCTURES: Severe disc space narrowing lumbosacral junction redemonstrated. OTHER: No significant additional abnormality is seen. IMPRESSION: There is 4 mm distal right ureter calculus causing mild right-sided hydronephrosis.
[2021-04-17 14:49] VITALS: BP 129/94; PULSE 84
== END 2021-04-17 14:49 | disposition home or self-care (01) ==
LOC: EC 10:42
DX: N13.2 Hydronephrosis with renal and ureteral calculous obstruction (principal); E78.5 Hyperlipidemia, unspecified; I10 Essential (primary) hypertension; K21.9 Gastro-esophageal reflux disease without esophagitis; Z87.891 Personal history of nicotine dependence; Z88.8 Allergy status to other drugs, medicaments and biological substances; Z79.899 Other long term (current) drug therapy
CPT/HCPCS: 36415; 80053; 82150; 83690; 85025; 81001; 74018; 74176; 99284; 96374; J1885

== ENCOUNTER 2023-01-20 22:52 | Emergency (ER) | payer MEDICARE, OTHER ==
[2023-01-20] MEDS ORDERED: METOCLOPRAMIDE 5 MG/ML 2 ML VIAL IVP STA (22:55)
[2023-01-20] MEDS ORDERED: SODIUM CHLORIDE 0.9% 1,000 ML IV STA (22:55)
[2023-01-20] MEDS ORDERED: PANTOPRAZOLE 40 MG/10 ML VIAL IVP STA (22:55)
[2023-01-20] MEDS ORDERED: SODIUM CHLORIDE 0.9% 2,000 ML IV STA (22:55)
[2023-01-20 22:57] VITALS: TEMP 97.2
[2023-01-20] MEDS ORDERED: diphenhydrAMINE 50 MG/ML 1 ML VIAL IVP STA (22:57)
--- NOTE | 2023-01-20 23:27 | XR ---
EXAM: XR Abdomen, 1 View CLINICAL HISTORY: [email or web address] XR Reason: abdominal pain TECHNIQUE: Frontal supine view of the abdomen/pelvis. COMPARISON: No relevant prior studies available. FINDINGS: Gastrointestinal tract: Nonobstructive bowel gas pattern. IMPRESSION: Nonobstructive bowel gas pattern.
--- NOTE | 2023-01-20 23:30 | XR ---
EXAM: XR Chest, 1 View CLINICAL HISTORY: [email or web address] XR Reason: abdominal pain TECHNIQUE: Frontal view of the chest. COMPARISON: No relevant prior studies available. FINDINGS: Lungs: Low lung volumes with bronchovascular congestion. No overt edema or consolidation. Pleural space: No pleural effusion. No pneumothorax. Heart: Unremarkable. No cardiomegaly. IMPRESSION: No acute findings in the chest.
[2023-01-20 23:33] LABS: ALT 139 U/L (4-49); AST 218 U/L (17-59); African American GFR (CKD) 59 (>60 ml/min/1.73 sqM); Albumin 3.5 g/dL (3.5-5.0); Alkaline Phosphatase 144 U/L (38-126); Anion Gap 8 mmol/L; Blood Urea Nitrogen 18 mg/dL (9-20); Calcium 8.4 mg/dL (8.4-10.2); Carbon Dioxide 24 mmol/L (22-30); Chloride 106 mmol/L (98-107); Glucose 152 mg/dL (74-99); Non-African American GFR(CKD) 51 (>60 ml/min/1.73 sqM); Potassium 4.2 mmol/L (3.5-5.1); Sodium 138 mmol/L (137-145); Total Bilirubin 2.2 mg/dL (0.2-1.3); Total Protein 5.9 g/dL (6.3-8.2)
[2023-01-20 23:35] LABS: Basophils % (A) 0 %; Eosinophils # (A) 0.1 k/uL (0-0.7); Eosinophils % (A) 1 %; HGB 16.7 gm/dL (13.0-17.5); Lymphocytes % (A) 16 %; MCH 30.5 pg (25.0-35.0); MCHC 33.4 g/dL (31.0-37.0); MCV 91.5 fL (80.0-100.0); Monocytes # (A) 0.6 k/uL (0-1.0); Monocytes % (A) 5 %; Neutrophils # (A) 9.5 k/uL (1.3-7.7); Neutrophils % (A) 76 %; Platelet Count 271 k/uL (150-450); RBC 5.47 m/uL (4.30-5.90); WBC 12.5 k/uL (3.8-10.6)
[2023-01-20 23:43] LABS: Amylase 1732 U/L (30-110)
[2023-01-20 23:45] LABS: Prothrombin Time 10.3 sec (9.0-12.0)
[2023-01-20 23:47] LABS: Partial Thromboplastin Time 19.4 sec (22.0-30.0)
--- NOTE | 2023-01-20 23:53 | CT ---
EXAM: CT Angiography Chest With Intravenous Contrast CLINICAL HISTORY: [email or web address].REASON CT Reason: abd pain/chest pain epigastric. sudden onset. TECHNIQUE: Axial computed tomographic angiography images of the chest with intravenous contrast. CTDI is 37.14 mGy and DLP is 1206.9 mGy-cm. This CT exam was performed using one or more of the following dose reduction techniques: automated exposure control, adjustment of the mA and/or kV according to patient size, and/or use of iterative reconstruction technique. MIP reconstructed images were created and reviewed. COMPARISON: No relevant prior studies available. FINDINGS: Pulmonary arteries: No pulmonary embolism. Aorta: Normal caliber aorta. No dissection. Lungs: Atelectasis in the lungs. No evidence of pneumonia. No interstitial edema. Calcified granulomas in the right lower lobe and left upper lobe. Pleural space: Unremarkable. Heart: Heart size is normal. No pericardial effusion. Bones/joints: No acute fracture. Soft tissues: Unremarkable. Lymph nodes: Unremarkable. IMPRESSION: Normal caliber aorta. No dissection. No acute abnormality. EXAM: CT Angiography Abdomen and Pelvis With Intravenous Contrast CLINICAL HISTORY: ITS.REASON CT Reason: abd pain/chest pain epigastric. sudden onset. TECHNIQUE: Axial computed tomographic angiography images of the abdomen and pelvis with intravenous contrast. CTDI is 37.14 mGy and DLP is 1206.9 mGy-cm. This CT exam was performed using one or more of the following dose reduction techniques: automated exposure control, adjustment of the mA and/or kV according to patient size, and/or use of iterative reconstruction technique. MIP reconstructed images were created and reviewed. COMPARISON: No relevant prior studies available. FINDINGS: VASCULATURE: Aorta: Normal caliber aorta. No aneurysm or dissection. Celiac trunk and mesenteric arteries: No acute findings. No occlusion or significant stenosis. Renal arteries: No acute findings. No occlusion or significant stenosis. Iliac arteries: No acute findings. No occlusion or significant stenosis. Lung bases: Unremarkable. No mass. No consolidation. ABDOMEN: Liver: Unremarkable. No mass. Gallbladder and bile ducts: Status post cholecystectomy. No ductal dilation. Pancreas: Mild fat stranding around the pancreas. No ductal dilation. Spleen: Unremarkable. No splenomegaly. Adrenals: Unremarkable. No mass. Kidneys and ureters: Unremarkable. No hydronephrosis. No solid mass. Stomach and bowel: Circumferential mucosal thickening and inflammation of the duodenum consistent with duodenitis. No obstruction. PELVIS: Appendix: No findings to suggest acute appendicitis. Bladder: Unremarkable. No mass. Reproductive: Unremarkable as visualized. ABDOMEN and PELVIS: Intraperitoneal space: Unremarkable. No significant fluid collection. No free air. Bones/joints: No acute fracture. No dislocation. Soft tissues: Unremarkable. Lymph nodes: Unremarkable. No enlarged lymph nodes. IMPRESSION: 1. Circumferential mucosal thickening and inflammation of the duodenum consistent with duodenitis. No visualized perforated ulcer. 2. Mild fat stranding around the pancreas. Some of this may be artifactual secondary to motion. Correlate with lipase for mild pancreatitis.
[2023-01-21 00:05] LABS: Lipase >20000 U/L (23-300)
[2023-01-21] MEDS ORDERED: KETOROLAC 15 MG/ML 1 ML VIAL IVP STA (00:05)
[2023-01-21] MEDS ORDERED: MORPHINE SULFATE 4 MG/ML SYRINGE IVP STA (00:20)
[2023-01-21] MEDS ORDERED: SODIUM CHLORIDE 0.9% 1,000 ML IV STA (00:46)
--- NOTE | 2023-01-21 00:49 | ED ---
General Adult HPI - General Chief complaint: Abdominal Pain Stated complaint: Chest Pain Time Seen by Provider: 01/20/23 22:55 Source: patient, EMS, RN notes reviewed, old records reviewed Mode of arrival: EMS Limitations: no limitations - History of Present Illness Initial comments: Patient is a 67-year-old male with past medical history remarkable for kidney stones, cholecystectomy, hypertension, skin cancer who presents emergency Department complaining of sudden onset epigastric abdominal pain. States this occurred approximately 3 hours prior to arrival. Has been having continuous somewhat bilious emesis that has been nonbloody since that time. Denies any constipation or blood in the stool but states he has had some loose bowel movements over the last few days. Denies any dysuria or hematuria. Denies any shortness of breath but does endorse chest pain because of the epigastric abdominal pain. States he has not felt this pain before. This is different than his kidney stone pain. He presents for further evaluation at this time. D eclines all pain medications initially because he states he has ALLERGIES to them. He experiences nausea and vomiting when he takes them. No anaphylaxis. - Related Data Home Medications Medication Instructions Recorded Confirmed Simvastatin [Zocor] 20 mg PO HS 09/18/14 04/17/21 Baclofen 10 mg PO TID PRN 01/21/21 04/17/21 Losartan Potassium [Cozaar] 100 mg PO DAILY 01/21/21 04/17/21 Omeprazole [PriLOSEC] 20 mg PO AC-[id number] 01/21/21 04/17/21 Acetaminophen Tab [Tylenol Tab] 1,000 mg PO Q6HR PRN 04/17/21 04/17/21 Sildenafil [Revatio] 20 mg PO DAILY PRN 04/17/21 04/17/21 Tamsulosin HCl [Flomax] 0.4 mg PO ONCE 04/17/21 04/17/21 Allergies Allergy/AdvReac Type Severity Reaction Status Date / Time fentanyl Allergy Nausea & Verified 01/20/23 22:58 Vomiting tramadol Allergy Nausea & Verified 01/20/23 22:58 Vomiting codeine AdvReac Nausea & Verified 01/20/23 22:58 Vomiting hydrocodone bitartrate AdvReac Nausea & Verified 01/20/23 22:58 [From [facility]] Vomiting Review of Systems ROS Statement: Those systems with pertinent positive or pertinent negative responses have been documented in the HPI. Review of Systems: CONST: Denies fever EYES: Denies blurry vision ENT: Denies nasal congestion C/V: Endorses chest pain RESP: Denies shortness of breath GI: Endorses abdominal pain : Denies dysuria SKIN: Denies rash. MSK: Denies joint pain. NEURO: Denies headache ROS Other: All systems not noted in ROS Statement are negative. Past Medical History Past Medical History: Cancer, GERD/Reflux, Hyperlipidemia, Hypertension, Osteoarthritis (OA) Additional Past Medical History / Comment(s): pneumothorax, skin cancer-basal cell History of Any Multi-Drug Resistant Organisms: None Reported Past Surgical History: Cholecystectomy, Orthopedic Surgery Additional Past Surgical History / Comment(s): left thumb ligament reattached,rt rotator cuff repair, left knee surgery, basal cell removal - face Past Anesthesia/Blood Transfusion Reactions: No Reported Reaction Past Psychological History: No Psychological Hx Reported Smoking Status: Former smoker - Past Family History Mother Family Medical History: Cancer General Exam - General Exam Comments Initial Comments: General: Presents in severe distress secondary to abdominal pain. HEAD: Normal with no signs of head trauma. EYES: PERRLA, EOMI, conjunctiva normal, no discharge. ENT: Hearing grossly intact, normal oropharynx. RESPIRATORY: Clear breath sounds bilaterally. No wheezes, rales, or rhonchi. C/V: Tachycardic with regular rhythm.. S1 and S2 auscultated, no edema, peripheral pulses 2+ and intact throughout ABD: Abdomen soft, nondistended, tender to palpation in the epigastric region. Guarding. No peritoneal signs. No rebound tenderness. No flank tenderness. No lower abdominal pain. EXT: Normal range of motion, no obvious deformity SKIN: No rashes or lesions observed on exposed skin. NEURO: Alert and oriented 4. No obvious deficits. Limitations: no limitations Course Vital Signs 01/20/23 01/21/23 22:53 01:27 Temperature 97.2 F L Pulse Rate 103 H 100 Respiratory 22 20 Rate Blood Pressure 102/57 104/69 O2 Sat by Pulse 96 97 Oximetry Medical Decision Making - Medical Decision Making Was pt. sent in by a medical professional or institution (, PA, CRITICAL SYSTEMS TECHNICIAN, urgent care, hospital, or shelter...) When possible be specific @ -No Did you speak to anyone other than the patient for history (EMS, parent, family, police, friend...)? What history was obtained from this source @ -No Did you review nursing and triage notes (agree or disagree)? Why? @ -I reviewed and agree with nursing and triage notes Were old charts reviewed (outside hosp., previous admission, EMS record, old EKG, old radiological studies, urgent care reports/EKG's, shelter records)? Report findings @ -Old CT imaging was reviewed from last few years to evaluate for any evidence of aortic aneurysm or dissection previously. Differential Diagnosis (chest pain, altered mental status, abdominal pain women, abdominal pain men, vaginal bleeding, weakness, fever, dyspnea, syncope, headache, dizziness, GI bleed, back pain, seizure, CVA, palpatations, mental health, musculoskeletal)? @ -Differential Abdominal Pain Men: Appendicitis, cholecystitis, diverticulosis, ischemic bowel, pancreatitis, hepatitis, UTI, gastroenteritis, AAA, incarcerated hernia, bowel obstruction, constipation, inflammatory bowel, hepatitis, peptic ulcer disease, splenic in farction, perforated viscus, testicular torsion, this is not meant to be an all- inclusive list Differential Chest Pain: Stable Angina, Unstable Angina, STEMI, NSTEMI Aortic Dissection, Pneumothorax, M usculoskeletal, Esophageal Spasm GERD, Cholecystitis, Pancreatitis, Zoster, this is not meant to be an all-inclusive list. EKG interpreted by me (3pts min.). @ -As above X-rays interpreted by me (1pt min.). @ -Chest x-ray reveals no obvious acute cardiopulmonary process. The mediastinum does appear slightly more widened compared to old chest x-rays in our system. Abd x-ray shows no obvious acute abdominal process. CT interpreted by me (1pt min.). @ -CT shows no evidence of aortic injury in the chest abdomen or pelvis. It does reveal findings of duodenitis as well as pancreatitis. No obvious abscess seen. U/S interpreted by me (1pt. min.). @ -None done What testing was considered but not performed or refused? (CT, X-rays, U/S, labs)? Why? @ -None What meds were considered but not given or refused? Why? @ -I did initially offer analgesia medications which were declined. Eventually the patient did accept them. Did you discuss the management of the patient with other professionals (professionals i.e. , PA, CRITICAL SYSTEMS TECHNICIAN, lab, RT, psych nurse, social media intern, facilities clerk, teacher, traffic control officer, case sealer)? Give summary @ -Discussed with on-call surgeon Dr. Renteria as we do not have on-call GI and he recommended transfer for the acute pancreatitis for GI evaluation. I spoke with the accepting physician Dr. Lopez at [facility] who was in agreement with the plan. Was smoking cessation discussed for >3mins.? @ -No Was critical care preformed (if so, how long)? @ -Yes, 37 minutes. Were there social determinants of health that impacted care today? How? (Homelessness, low income, unemployed, alcoholism, drug addiction, transportation, low edu. Level, literacy, decrease access to med. care, senior living, r ehab)? @ -No Was there de-escalation of care discussed even if they declined (Discuss DNR or withdrawal of care, Hospice)? DNR status @ -No What co-morbidities impacted this encounter? (DM, HTN, Smoking, COPD, CAD, Cancer, CVA, ARF, Chemo, Hep., AIDS, mental health diagnosis, sleep apnea, morbid obesity)? @ -None Was patient admitted / discharged? Hospital course, mention meds given and route, prescriptions, significant lab abnormalities, going to OR and other pertinent info. @ -Based on the patient's presentation and physical exam, he presents with severe abdominal pain and epigastric lower sternal chest pain. Onset 3 Hours Prior to Arrival with Diffuse Nonbilious Nonbloody Emesis. We Will Obtain Abdominal Laboratory Studies. Patient Was Initially Mildly Hypotensive in the Field but Was Responding to Fluids. He Will Receive a Total of 2 L Fluid Bolus and Be Placed on Maintenance Fluids.Patient will be given IV Protonix, Reglan, Benadryl, 1 L fluid bolus in addition to the 1 L fluid bolus it is already going in from EMS. Patient's blood pressure is improving. Is mildly tachycardic. I offered him pain medications the patient does have a history of nausea and vomiting from narcotics and he refuses all pain meds at this time. Patient's labs are remarkable for a mild leukocytosis of 12. Patient has an elevated creatinine that is mild of 1.42. Lactic acid is 2.9 likely secondary to diffuse nausea and vomiting. Patient has elevated total bilirubin of 2.2, AST and ALT of 218 and 139, alk phos 144. Troponin undetectable. Patient has significant elevations in his pancreatic enzymes with an amylase of 1700 and a lipase greater than 20,000. Patient's imaging revealed no evidence of aortic catastrophe. Patient does have acute pancreatitis as well as mild duodenitis. X-rays were unremarkable. On reevaluation patient is requesting morphine and Toradol at this time which will be provided. I updated him on his results. He requires admission to the hospital for symptomatic treatment. 2 elevations in his hepatobiliary labs, I cannot necessarily rule out an obstruction, however he has had a cholecystectomy for multiple years, and there is no evidence of ductal dilation on CT. We do not have GI services at our facility. I spoke with our surgeon on-call Dr. James to see if he is comfortable managing this patient but he was in agreement that GI services would be best for evaluation. I do agree with this assessment. We will continue fluid hydration. We will transfer to [facility]. I spoke with their ER physician Dr. Lopez who accepted the patient. Undiagnosed new problem with uncertain prognosis? @ -No Drug Therapy requiring intensive monitoring for toxicity (Heparin, Nitro, Insulin, Cardizem)? @ -No Were any procedures done? @ -No Diagnosis/symptom? @ -pancreatitis, dehydration, nausea and vomiting, abdominal pain Acute, or Chronic, or Acute on Chronic? @ -Acute Uncomplicated (without systemic symptoms) or Complicated (systemic symptoms)? @ -Complicated Side effects of treatment? @ -none Exacerbation, Progression, or Severe Exacerbation] @ -no Poses a threat to life or bodily function? @ -Yes - Lab Data Result diagrams: 01/20/23 22:59 01/20/23 22:59 Lab Results 01/20/23 01/20/23 01/20/23 Range/Units 22:59 22:59 22:59 WBC 12.5 H (3.8-10.6) k/uL RBC 5.47 (4.30-5.90) m/uL Hgb 16.7 (13.0-17.5) gm/dL Hct 50.0 (39.0-53.0) % MCV 91.5 (80.0-100.0) fL MCH 30.5 (25.0-35.0) pg MCHC 33.4 (31.0-37.0) g/dL RDW 12.0 (11.5-15.5) % Plt Count 271 (150-450) k/uL MPV 8.0 Neutrophils % 76 % Lymphocytes % 16 % Monocytes % 5 % Eosinophils % 1 % Basophils % 0 % Neutrophils # 9.5 H (1.3-7.7) k/uL Lymphocytes # 2.0 (1.0-4.8) k/uL Monocytes # 0.6 (0-1.0) k/uL Eosinophils # 0.1 (0-0.7) k/uL Basophils # 0.0 (0-0.2) k/uL PT 10.3 (9.0-12.0) sec INR 1.0 (<1.2) APTT 19.4 L (22.0-30.0) sec Sodium 138 (137-145) mmol/L Potassium 4.2 (3.5-5.1) mmol/L Chloride 106 (98-107) mmol/L Carbon Dioxide 24 (22-30) mmol/L Anion Gap 8 mmol/L BUN 18 (9-20) mg/dL Creatinine 1.42 H (0.66-1.25) mg/dL Est GFR (CKD-EPI)AfAm 59 (>60 ml/min/1.73 sqM) Est GFR (CKD-EPI)NonAf 51 (>60 ml/min/1.73 sqM) Glucose 152 H (74-99) mg/dL Lactic Ac Sepsis Rflx Plasma Lactic Acid Jimmy (0.7-2.0) mmol/L Calcium 8.4 (8.4-10.2) mg/dL Total Bilirubin 2.2 H (0.2-1.3) mg/dL AST 218 H (17-59) U/L ALT 139 H (4-49) U/L Alkaline Phosphatase 144 H (38-126) U/L Troponin I (0.000-0.034) ng/mL Total Protein 5.9 L (6.3-8.2) g/dL Albumin 3.5 (3.5-5.0) g/dL Amylase 1732 H* (30-110) U/L Lipase >35957 H (23-300) U/L 01/20/23 01/20/23 01/20/23 Range/Units 22:59 22:59 23:48 WBC (3.8-10.6) k/uL RBC (4.30-5.90) m/uL Hgb (13.0-17.5) gm/dL Hct (39.0-53.0) % MCV (80.0-100.0) fL MCH (25.0-35.0) pg MCHC (31.0-37.0) g/dL RDW (11.5-15.5) % Plt Count (150-450) k/uL MPV Neutrophils % % Lymphocytes % % Monocytes % % Eosinophils % % Basophils % % Neutrophils # (1.3-7.7) k/uL Lymphocytes # (1.0-4.8) k/uL Monocytes # (0-1.0) k/uL Eosinophils # (0-0.7) k/uL Basophils # (0-0.2) k/uL PT (9.0-12.0) sec INR (<1.2) APTT (22.0-30.0) sec Sodium (137-145) mmol/L Potassium (3.5-5.1) mmol/L Chloride (98-107) mmol/L Carbon Dioxide (22-30) mmol/L Anion Gap mmol/L BUN (9-20) mg/dL Creatinine (0.66-1.25) mg/dL Est GFR (CKD-EPI)AfAm (>60 ml/min/1.73 sqM) Est GFR (CKD-EPI)NonAf (>60 ml/min/1.73 sqM) Glucose (74-99) mg/dL Lactic Ac Sepsis Rflx Y Plasma Lactic Acid Jimmy 2.9 H* (0.7-2.0) mmol/L Calcium (8.4-10.2) mg/dL Total Bilirubin (0.2-1.3) mg/dL AST (17-59) U/L ALT (4-49) U/L Alkaline Phosphatase (38-126) U/L Troponin I <0.012 (0.000-0.034) ng/mL Total Protein (6.3-8.2) g/dL Albumin (3.5-5.0) g/dL Amylase (30-110) U/L Lipase (23-300) U/L - EKG Data -: EKG Interpreted by Al EKG Comments: 12-lead Electrocardiogram Interpretation Note EKG was reviewed and interpreted by myself. 12-lead ECG performed at 2253 is interpreted by me as revealing sinus tachycardia with PVCs at a rate of 100 beats per minute. Kingsley is normal. GA interval is 190 ms, QRS duration is 70 ms, QTc is 448 ms.. There were no ST or T wave abnormalities to suggest myocardial ischemia or injury. R wave progression across the precordium was satisfactory. By my interpretation this EKG is non-diagnostic for acute ischemia. Critical Care Time Critical Care Time: Yes Total Critical Care Time: 37 Disposition Clinical Impression: Acute pancreatitis, Nausea and vomiting, Abdominal pain, Dehydration Disposition: OTHER INSTITUTION NOT DEFINED Condition: Serious Referrals: Sade Esteves MD [Primary Care Provider] - 1-2 days Time of Disposition: 00:42 - Out of Hospital Transfer - Req. Specs Out of Hospital Transfer - Requested Specifics: Other Emergency Center (transferred for GI evaluation at [facility] for acute pancreatitis as we do not have GI services here.)
[2023-01-21 01:31] VITALS: BP 104/69; PULSE 100; RESP 20
== END 2023-01-21 01:31 | disposition other institution (70) ==
LOC: EC 22:52
DX: K85.90 Acute pancreatitis without necrosis or infection, unspecified (principal); E86.0 Dehydration; K21.9 Gastro-esophageal reflux disease without esophagitis; I10 Essential (primary) hypertension; E78.5 Hyperlipidemia, unspecified; M19.90 Unspecified osteoarthritis, unspecified site; Z79.1 Long term (current) use of non-steroidal anti-inflammatories (NSAID); Z79.899 Other long term (current) drug therapy; Z88.5 Allergy status to narcotic agent; Z88.8 Allergy status to other drugs, medicaments and biological substances; Z87.891 Personal history of nicotine dependence
CPT/HCPCS: 36415; 93005; 80053; 82150; 83605; 83690; 84484; 85025; 85610; 85730; 71045; 74018; 71275; 74174; 99291; 96374; 96375 ×4; 96361 ×2; J2270; J1200; J2765; J1885; C9113; Q9967

== ENCOUNTER 2023-02-09 10:49 | Emergency (ER) | payer MEDICARE, OTHER ==
[2023-02-09 11:13] VITALS: TEMP 98.6
[2023-02-09] MEDS ORDERED: SODIUM CHLORIDE 0.9% 1,000 ML IV ONE (12:45)
[2023-02-09] MEDS ORDERED: SODIUM CHLORIDE 0.9% 500 ML 500 ML IV ONE (12:45)
--- NOTE | 2023-02-09 12:48 | ED ---
General Adult HPI - General Chief complaint: Arrhythmia/Palpitations Stated complaint: irregular heart beat Time Seen by Provider: 02/09/23 12:00 Source: patient, RN notes reviewed, old records reviewed Mode of arrival: wheelchair Limitations: no limitations - History of Present Illness Initial comments: This is a 67-year-old male presents emergency Department with a past medical history significant for pancreatitis which thrown into his stomach and patient needed to be put on a PEG tube after surgery patient's been in multiple time for increasing pain and increasing pancreatic enzymes. Patient states more recently he's been unable to tolerate tube feedings and is feeling weaker and is constantly nauseous and occasionally vomiting. Patient also is noticing his heart beat has been irregular and his nurse agreed that he is having Her beat every once a while and recommended he come to the emergency department to be evaluated. Patient denies chest pain difficulty breathing shortness of breath. Patient denies any pain currently. Patient states he's not at the moment nauseous. Patient denies lightheadedness or dizziness he does state he was feeling stronger and his lungs as to feeds were increasing but now that did not is feeling a little weaker. Patient denies any fever chills - Related Data Home Medications Medication Instructions Recorded Confirmed Simvastatin [Zocor] 20 mg PO HS 09/18/14 04/17/21 Baclofen 10 mg PO TID PRN 01/21/21 04/17/21 Losartan Potassium [Cozaar] 100 mg PO DAILY 01/21/21 04/17/21 Omeprazole [PriLOSEC] 20 mg PO AC-BRKFST 01/21/21 04/17/21 Acetaminophen Tab [Tylenol Tab] 1,000 mg PO Q6HR PRN 04/17/21 04/17/21 Sildenafil [Revatio] 20 mg PO DAILY PRN 04/17/21 04/17/21 Tamsulosin HCl [Flomax] 0.4 mg PO ONCE 04/17/21 04/17/21 Previous Rx's Medication Instructions Recorded Ondansetron [Zofran] 4 mg PO Q8HR PRN #20 tab 02/09/23 Allergies Allergy/AdvReac Type Severity Reaction Status Date / Time fentanyl Allergy Nausea & Verified 02/09/23 11:12 Vomiting tramadol Allergy Nausea & Verified 02/09/23 11:12 Vomiting codeine AdvReac Nausea & Verified 02/09/23 11:12 Vomiting hydrocodone bitartrate AdvReac Nausea & Verified 02/09/23 11:12 [From [place]] Vomiting Review of Systems ROS Statement: Those systems with pertinent positive or pertinent negative responses have been documented in the HPI. ROS Other: All systems not noted in ROS Statement are negative. Past Medical History Past Medical History: Cancer, GERD/Reflux, Hyperlipidemia, Hypertension, Osteoarthritis (OA) Additional Past Medical History / Comment(s): pneumothorax, skin cancer-basal cell History of Any Multi-Drug Resistant Organisms: None Reported Past Surgical History: Cholecystectomy, Orthopedic Surgery Additional Past Surgical History / Comment(s): left thumb ligament reattached,rt rotator cuff repair, left knee surgery, basal cell removal - face, abdominal surgery, peg tube placement Past Anesthesia/Blood Transfusion Reactions: No Reported Reaction Past Psychological History: No Psychological Hx Reported Smoking Status: Former smoker Past Alcohol Use History: None Reported Past Drug Use History: None Reported - Past Family History Mother Family Medical History: Cancer General Exam - General Exam Comments Initial Comments: GENERAL: Patient is well-developed and well-nourished. Patient is nontoxic and well-hyd rated and is in no acute distress. ENT: Neck is soft and supple. No significant lymphadenopathy is noted. Oropharynx is clear. Moist mucous membranes. Neck has full range of motion without elicit ing any pain. There is no thyroid enlargement and no masses were felt. EYES: The sclera were anicteric and conjunctiva were pink and moist. Extraocular movements were intact and pupils were equal round and reactive to light. Eyelids were unremarkable. PULMONARY: Unlabored respirations. Good breath sounds bilaterally. No audible rales rhonchi or wheezing was noted. CARDIOVASCULAR: There is a regular rate and rhythm without any murmurs gallops or rubs. Femoral pulses are equal bilaterally ABDOMEN: Soft and nontender with normal bowel sounds. No palpable organomegaly was noted. There is no palpable pulsatile mass. Patient's incision appears to be healing without any signs of infection SKIN: Skin is clear with no lesions or rashes and otherwise unremarkable. NEUROLOGIC: Patient is alert and oriented x3. Cranial nerves II through XII are grossly intact. Motor and sensory are also intact. Normal speech, volume and content. Symmetrical smile. Cerebellar exam grossly intact. MUSCULOSKELETAL: Normal extremities with adequate strength and full range of motion. No lower ex tremity swelling or edema. No calf tenderness. LYMPHATICS: No significant lymphadenopathy is noted PSYCHIATRIC: Normal psychiatric evaluation. Limitations: no limitations Course Vital Signs 02/09/23 02/09/23 02/09/23 11:08 14:42 15:32 Temperature 98.6 F Pulse Rate 126 H 110 H 107 H Respiratory 24 18 18 Rate Blood Pressure 116/80 132/80 137/88 O2 Sat by Pulse 97 95 96 Oximetry Medical Decision Making - Medical Decision Making Was pt. sent in by a medical professional or institution (, PA, RECEIVABLE MANAGER, urgent care, hospital, or fpc...) When possible be specific @ -Patient's visiting nurse sent the patient to the emergency department Did you speak to anyone other than the patient for history (EMS, parent, family, police, friend...)? What history was obtained from this source @ -No Did you review nursing and triage notes (agree or disagree)? Why? @ -I reviewed and agree with nursing and triage notes Were old charts reviewed (outside hosp., previous admission, EMS record, old EKG, old radiological studies, urgent care reports/EKG's, fpc records)? Report findings @ -I reviewed prior lab work prior EKGs on this patient Differential Diagnosis (chest pain, altered mental status, abdominal pain women, abdominal pain men, vaginal bleeding, weakness, fever, dyspnea, syncope, headache, dizziness, GI bleed, back pain, seizure, CVA, palpatations, mental health, musculoskeletal)? @ -Differential Weakness: Hypoglycemia, shock, sepsis, hyponatremia, anemia, infection, IL, ETOH, adverse medicine reaction, overdose, stroke, this is not meant to be an all-inclusive list. EKG interpreted by me (3pts min.). @ -EKG shows a sinus tachycardia with frequent PVCs at 112 bpm [place] interval 176 QRS 75 Q-T intervals 356 QTC is 423. Patient's EKG shows no ST segment elevation or depression X-rays interpreted by me (1pt min.). @ -Chest x-ray showed no acute abnormality CT interpreted by me (1pt min.). @ -None done U/S interpreted by me (1pt. min.). @ -None done What testing was considered but not performed or refused? (CT, X-rays, U/S, labs)? Why? @ -None What meds were considered but not given or refused? Why? @ -None Did you discuss the management of the patient with other professionals (professionals i.e. , PA, RECEIVABLE MANAGER, lab, RT, psych nurse, case management social worker, tube balancer, teacher, foreign policy officer, housing case manager)? Give summary @ -No Was smoking cessation discussed for >3mins.? @ -No Was critical care preformed (if so, how long)? @ -No Were there social determinants of health that impacted care today? How? (Homelessness, low income, unemployed, alcoholism, drug addiction, barraza sportation, low edu. Level, literacy, decrease access to med. care, long-term, rehab)? @ -No Was there de-escalation of care discussed even if they declined (Discuss DNR or withdrawal of care, Hospice)? DNR status @ -No What co-morbidities impacted this encounter? (DM, HTN, Smoking, COPD, CAD, Cancer, CVA, ARF, Chemo, Hep., AIDS, mental health diagnosis, sleep apnea, morbid obesity)? @ -None Was patient admitted / discharged? Hospital course, mention meds given and route, prescriptions, significant lab abnormalities, going to OR and other pertinent info. @ -She continue to PVCs throughout the course in the emergency department. I reviewed prior visit patient was having the same amount of PVCs in prior visits. Patient's left lites were normal and the lab work. Patient was receiving a liter and half of fluid and felt considerably better after arrangements were made for follow-up with the primary medical care doctor as well as with the dietitian at the house and patient does have an appointment tomorrow with his GI doctor. Undiagnosed new problem with uncertain prognosis? @ -No Drug Therapy requiring intensive monitoring for toxicity (Heparin, Nitro, Insulin, Cardizem)? @ -No Were any procedures done? @ -No Diagnosis/symptom? @ -Dehydration Acute, or Chronic, or Acute on Chronic? @ -Acute Uncomplicated (without systemic symptoms) or Complicated (systemic symptoms)? @ -Complicated Side effects of treatment? @ -No Exacerbation, Progression, or Severe Exacerbation? @ -No Poses a threat to life or bodily function? How? (Chest pain, [place], IL, pneumonia, PE, COPD, DKA, ARF, appy, cholecystitis, CVA, Diverticulitis, Homicidal, [place] icidal, threat to staff... and all critical care pts) @ -No Diagnosis/symptom? @ -Chronic nausea Acute, or Chronic, or Acute on Chronic? @ -chronic Uncomplicated (without systemic symptoms) or Complicated (systemic symptoms)? @ -Uncomplicated Side effects of treatment? @ -none Exacerbation, Progression, or Severe Exacerbation] @ -no Poses a threat to life or bodily function? @ -no - Lab Data Result diagrams: 02/09/23 12:49 02/09/23 12:49 Lab Results 02/09/23 02/09/23 02/09/23 Range/Units 12:49 12:49 12:49 WBC 15.4 H (3.8-10.6) k/uL RBC 4.71 (4.30-5.90) m/uL Hgb 15.3 (13.0-17.5) gm/dL Hct 44.4 (39.0-53.0) % MCV 94.3 (80.0-100.0) fL MCH 32.5 (25.0-35.0) pg MCHC 34.5 (31.0-37.0) g/dL RDW 11.7 (11.5-15.5) % Plt Count 370 (150-450) k/uL MPV 8.5 Neutrophils % 87 % Lymphocytes % 5 % Monocytes % 6 % Eosinophils % 2 % Basophils % 0 % Neutrophils # 13.4 H (1.3-7.7) k/uL Lymphocytes # 0.8 L (1.0-4.8) k/uL Monocytes # 0.9 (0-1.0) k/uL Eosinophils # 0.3 (0-0.7) k/uL Basophils # 0.0 (0-0.2) k/uL Sodium 137 (137-145) mmol/L Potassium 5.0 (3.5-5.1) mmol/L Chloride 98 (98-107) mmol/L Carbon Dioxide 26 (22-30) mmol/L Anion Gap 13 mmol/L BUN 20 (9-20) mg/dL Creatinine 0.87 (0.66-1.25) mg/dL Est GFR (CKD-EPI)AfAm >90 (>60 ml/min/1.73 sqM) Est GFR (CKD-EPI)NonAf 90 (>60 ml/min/1.73 sqM) Glucose 103 H (74-99) mg/dL Calcium 9.6 (8.4-10.2) mg/dL Magnesium 2.2 (1.6-2.3) mg/dL Total Bilirubin 1.1 (0.2-1.3) mg/dL AST 28 (17-59) U/L ALT 26 (4-49) U/L Alkaline Phosphatase 243 H (38-126) U/L Troponin I <0.012 (0.000-0.034) ng/mL Total Protein 7.5 (6.3-8.2) g/dL Albumin 4.0 (3.5-5.0) g/dL Amylase (30-110) U/L Lipase (23-300) U/L TSH 1.000 (0.465-4.680) mIU/L 02/09/23 Range/Units 12:49 WBC (3.8-10.6) k/uL RBC (4.30-5.90) m/uL Hgb (13.0-17.5) gm/dL Hct (39.0-53.0) % MCV (80.0-100.0) fL MCH (25.0-35.0) pg MCHC (31.0-37.0) g/dL RDW (11.5-15.5) % Plt Count (150-450) k/uL MPV Neutrophils % % Lymphocytes % % Monocytes % % Eosinophils % % Basophils % % Neutrophils # (1.3-7.7) k/uL Lymphocytes # (1.0-4.8) k/uL Monocytes # (0-1.0) k/uL Eosinophils # (0-0.7) k/uL Basophils # (0-0.2) k/uL Sodium (137-145) mmol/L Potassium (3.5-5.1) mmol/L Chloride (98-107) mmol/L Carbon Dioxide (22-30) mmol/L Anion Gap mmol/L BUN (9-20) mg/dL Creatinine (0.66-1.25) mg/dL Est GFR (CKD-EPI)AfAm (>60 ml/min/1.73 sqM) Est GFR (CKD-EPI)NonAf (>60 ml/min/1.73 sqM) Glucose (74-99) mg/dL Calcium (8.4-10.2) mg/dL Magnesium (1.6-2.3) mg/dL Total Bilirubin (0.2-1.3) mg/dL AST (17-59) U/L ALT (4-49) U/L Alkaline Phosphatase (38-126) U/L Troponin I (0.000-0.034) ng/mL Total Protein (6.3-8.2) g/dL Albumin (3.5-5.0) g/dL Amylase 50 (30-110) U/L Lipase 157 (23-300) U/L TSH (0.465-4.680) mIU/L Disposition Clinical Impression: Nausea, Dehydration, PVCs (premature ventricular contractions) Disposition: HOME SELF-CARE Condition: Good Instructions (If sedation given, give patient instructions): Dehydration (ED) Prescriptions: Ondansetron [Zofran] 4 mg PO Q8HR PRN #20 tab PRN Reason: Nausea And Vomiting Is patient prescribed a controlled substance at d/c from ED?: No Referrals: Sade Esteves MD [Primary Care Provider] - 02/17/23 5:00 pm [facility], [NON-STAFF] - [facility], [REFERRING] - Time of Disposition: 15:18
[2023-02-09 12:55] LABS: Basophils % (A) 0 %; Eosinophils # (A) 0.3 k/uL (0-0.7); Eosinophils % (A) 2 %; HCT 44.4 % (39.0-53.0); HGB 15.3 gm/dL (13.0-17.5); Lymphocytes # (A) 0.8 k/uL (1.0-4.8); Lymphocytes % (A) 5 %; MCH 32.5 pg (25.0-35.0); MCHC 34.5 g/dL (31.0-37.0); MCV 94.3 fL (80.0-100.0); Mean Platelet Volume 8.5; Monocytes # (A) 0.9 k/uL (0-1.0); Monocytes % (A) 6 %; Neutrophils # (A) 13.4 k/uL (1.3-7.7); Neutrophils % (A) 87 %; Platelet Count 370 k/uL (150-450); RBC 4.71 m/uL (4.30-5.90); RDW 11.7 % (11.5-15.5); WBC 15.4 k/uL (3.8-10.6)
[2023-02-09 13:07] LABS: ALT 26 U/L (4-49); AST 28 U/L (17-59); African American GFR (CKD) >90 (>60 ml/min/1.73 sqM); Alkaline Phosphatase 243 U/L (38-126); Anion Gap 13 mmol/L; Blood Urea Nitrogen 20 mg/dL (9-20); Calcium 9.6 mg/dL (8.4-10.2); Carbon Dioxide 26 mmol/L (22-30); Chloride 98 mmol/L (98-107); Glucose 103 mg/dL (74-99); Magnesium 2.2 mg/dL (1.6-2.3); Non-African American GFR(CKD) 90 (>60 ml/min/1.73 sqM); Sodium 137 mmol/L (137-145); Total Bilirubin 1.1 mg/dL (0.2-1.3); Total Protein 7.5 g/dL (6.3-8.2)
--- NOTE | 2023-02-09 13:08 | XR ---
EXAMINATION TYPE: XR chest 2V DATE OF EXAM: 02/09/2023 COMPARISON: 01/20/2023 TECHNIQUE: PA and lateral views submitted. HISTORY: Dysrhythmia FINDINGS: The lungs are clear and there is no pneumothorax, pleural effusion, or focal pneumonia. Heart size normal and no overt failure. Osseous structures demonstrate hypertrophic and degenerative changes of the spine. Reduced lung volumes. Bibasilar subsegmental consolidation. Surgical clips in the right upper quadran t. IMPRESSION: 1. Basilar atelectasis favored over pneumonia.
[2023-02-09 13:50] LABS: Amylase 50 U/L (30-110); Lipase 157 U/L (23-300)
[2023-02-09 14:43] VITALS: RESP 18
[2023-02-09] MEDS ORDERED: ONDANSETRON 4 MG/2 ML VIAL IVP STA (15:12)
[2023-02-09 15:33] VITALS: BP 137/88; PULSE 107
== END 2023-02-09 15:46 | disposition home or self-care (01) ==
LOC: EC 10:49
DX: I49.3 Ventricular premature depolarization (principal); E86.0 Dehydration; R11.0 Nausea; K21.9 Gastro-esophageal reflux disease without esophagitis; E78.5 Hyperlipidemia, unspecified; I10 Essential (primary) hypertension; M19.90 Unspecified osteoarthritis, unspecified site; Z87.891 Personal history of nicotine dependence; Z88.5 Allergy status to narcotic agent; Z88.8 Allergy status to other drugs, medicaments and biological substances; Z79.899 Other long term (current) drug therapy
CPT/HCPCS: 36415; 93005; 80053; 82150; 83690; 83735; 84443; 84484; 85025; 71046; 99285; 96374; 96361; J2405

== ENCOUNTER → 2023-03-01 | Outpatient (CLI) | payer MEDICARE, OTHER ==
--- NOTE | 2023-03-01 12:35 | XR ---
EXAMINATION TYPE: XR abdomen acute w cxr DATE OF EXAM: 03/01/2023 COMPARISON: 02/09/2023 HISTORY: Pain TECHNIQUE: Supine, upright, and left side down lateral decubitus views of the abdomen are obtained. FINDINGS: The lungs are clear. No focal pneumonia or interstitial edema. Appears to be a drainage catheter in the abdomen. Surgical clips are seen with multiple air-fluid lev els. Air is seen in a nonspecific pattern filling both large and small bowel loops. Bilateral hip art hropathy and hypertrophic changes in the spine. Phleboliths in the pelvis. Suggestion of a gastrostom y tube. IMPRESSION: Nonspecific abdomen occasional air-fluid levels correlate for ileus or partial obstruction.
== END | disposition home or self-care (01) ==
LOC: RADXRMAIN 11:21
PROVIDERS: ATTEND Family Medicine
DX: K59.00 Constipation, unspecified (principal)
CPT/HCPCS: 74022

== ENCOUNTER → 2023-03-09 | Outpatient (CLI) | payer MEDICARE, OTHER ==
[2023-03-09 13:43] LABS: African American GFR (CKD) >90 (>60 ml/min/1.73 sqM); Blood Urea Nitrogen 21 mg/dL (9-20); Non-African American GFR(CKD) >90 (>60 ml/min/1.73 sqM)
--- NOTE | 2023-03-09 14:41 | CT ---
EXAMINATION TYPE: CT abdomen pelvis w con CT DLP: 905.6 mGycm, Automated exposure control for dose reduction was used. DATE OF EXAM: 03/09/2023 2:21 PM COMPARISON: CT abdomen pelvis most recent from 02/01/2023. CLINICAL INDICATION:Male, 67 years old with history of K85.91 ACUTE PANCREATITIS WITH UNINFECTED NECROSIS; PANCREATITIS TECHNIQUE: Axial CT of the abdomen and pelvis. Sagittal and coronal reformats were created on a [employer] workstation. Contrast used:100 mL of Isovue 300 with IV Contrast, Oral contrast used: with Oral Contrast FINDINGS: LOWER CHEST: Left lower lobe calcified granulomas. Right lower lobe calcified granuloma. ABDOMEN LIVER: Unremarkable GALLBLADDER AND BILE DUCTS: The gallbladder surgically absent. PANCREAS: Sequela prior pancreatitis with organizing fluid collection with drainage catheter in appro priate position. J-tube is also in place with tip in appropriate position in the jejunum. Organizing fluid collection is mildly decreased in size now measuring 5.5 x 4.0 x 3.9 cm. Is decrease in extensi ve fat stranding changes around the pancreas with persistent inflammation present. There is some free fluid pseudocysts formation around the pancreatic tail measuring up to 3.9 x 2.2 cm. SPLEEN: Scattered calcified granulomas. ADRENAL GLANDS: Unremarkable. KIDNEYS AND URETERS: No evidence of hydronephrosis or renal calculus. The ureters are unremarkable. PELVIS BLADDER: Unremarkable REPRODUCTIVE: Prostate is enlarged in size measuring 4.8 cm in transverse dimension. ABDOMEN & PELVIS STOMACH AND BOWEL: No evidence of bowel obstruction. PERITONEUM/RETROPERITONEUM: No evidence of pneumoperitoneum or free fluid. VASCULATURE: No evidence of aortic aneurysm. MUSCULOSKELETAL: No acute osseous abnormalities LYMPH NODES: No gross evidence for lymphadenopathy. SOFT TISSUE/ABDOMINAL WALL: Unremarkable IMPRESSION: Sequela of necrotizing pancreatitis with drainage catheter in appropriate position. J-tube with tip i n appropriate position. Organizing fluid collection with pigtail catheter has decreased compared to p rior. Early pseudocyst formation around the pancreatic tail also present. Inflammation changes around the pancreas have decreased.
== END | disposition home or self-care (01) ==
LOC: RADCTMAIN 12:43
DX: K85.91 Acute pancreatitis with uninfected necrosis, unspecified (principal); K25.5 Chronic or unspecified gastric ulcer with perforation; R18.8 Other ascites; Z46.82 Encounter for fitting and adjustment of non-vascular catheter; Z87.19 Personal history of other diseases of the digestive system
CPT/HCPCS: 82565; 84520; 74177; 36415; Q9967

== ENCOUNTER 2023-04-24 16:17 | Inpatient (IN) | payer MEDICARE, OTHER ==
--- NOTE | 2023-04-24 16:30 | ED ---
General Adult HPI - General Chief complaint: Recheck/Abnormal Lab/Rx Stated complaint: possible infection fever chills Time Seen by Provider: 04/24/23 16:29 Source: patient, family Mode of arrival: ambulatory Limitations: no limitations - History of Present Illness Initial comments: Patient presents to the ED with his for evaluation. 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 Patient states that he had a drain placed at the site of a fluid collection in his abdomen at that time, and he states that he continues to have drain output. Patient states that he also had a GJ tube placed, and he has a left arm PICC line in place for daily TPN. Patient states that he is being followed at [facility]. Patient states that for the past 3 days, he has had severe chills intermittently, and states that the patient had a temperature of 102 Fahrenheit at about 2 AM this morning. states that the patient last had a dose of any antipyretic medication (Tylenol) early this morning. Patient also states that he feels very anxious. Patient states that he called [facility], but he states that they told him he would likely have to wait for over 8 hours before being able to be seen in their ED, so they advised that he come to our ED for a CT scan to look for a source of infection. Patient states that he has constant nausea and diarrhea due to being on a liquid diet. Patient denies headache, focal neuro deficit, sore throat, neck pain or stiffness, chest pain, dyspnea, cough or cold symptoms, palpitations, dizziness, abdominal pain, bloody or melanotic stool, dysuria/hematuria/urinary frequency/urinary symptoms, or any other symptoms or complaints. - Related Data Home Medications Medication Instructions Recorded Confirmed Simvastatin [Zocor] 20 mg PEG/G-TUBE HS 09/18/14 04/24/23 Baclofen 10 mg PEG/G-TUBE HS PRN 01/21/21 04/24/23 Omeprazole [PriLOSEC] 20 mg PO DAILY@1200 01/21/21 04/24/23 Sildenafil [Revatio] 20 mg PO DAILY PRN 04/17/21 04/24/23 ALPRAZolam [Xanax] 0.25 mg PEG/G-TUBE Q8H PRN 04/24/23 04/24/23 Ondansetron [Zofran] 4 mg PEG/G-TUBE Q8HR PRN 04/24/23 04/24/23 Allergies Allergy/AdvReac Type Severity Reaction Status Date / Time fentanyl Allergy Nausea & Verified 04/24/23 18:25 Vomiting tramadol Allergy Nausea & Verified 04/24/23 18:25 Vomiting codeine AdvReac Nausea & Verified 04/24/23 18:25 Vomiting hydrocodone bitartrate AdvReac Nausea & Verified 04/24/23 18:25 [From [place]] Vomiting Review of Systems ROS Statement: Those systems with pertinent positive or pertinent negative responses have been documented in the HPI. ROS Other: All systems not noted in ROS Statement are negative. Past Medical History Past Medical History: Cancer, GERD/Reflux, Hyperlipidemia, Hypertension, Osteoarthritis (OA) Additional Past Medical History / Comment(s): pneumothorax, skin cancer-basal cell History of Any Multi-Drug Resistant Organisms: None Reported Past Surgical History: Cholecystectomy, Orthopedic Surgery Additional Past Surgical History / Comment(s): left thumb ligament reattached,rt rotator cuff repair, left knee surgery, basal cell removal - face, abdominal surgery, peg tube placement Past Anesthesia/Blood Transfusion Reactions: No Reported Reaction Past Psychological History: No Psychological Hx Reported Smoking Status: Former smoker Past Alcohol Use History: None Reported Past Drug Use History: None Reported - Past Family History Mother Family Medical History: Cancer General Exam Limitations: no limitations General appearance: alert Head exam: Present: normocephalic Eye exam: Present: normal appearance ENT exam: Present: normal oropharynx, mucous membranes moist Neck exam: Present: other (Trachea is in midline). Absent: tenderness, meningismus Respiratory exam: Present: normal lung sounds bilaterally. Absent: respiratory distress, wheezes, rales, rhonchi, stridor Cardiovascular Exam: Present: normal rhythm, tachycardia, normal heart sounds, other (Normal radial pulses bilaterally) GI/Abdominal exam: Present: soft, hypoactive bowel sounds, other (Surgical drain is in place; GJ tube is in place). Absent: distended, tenderness, guarding Extremities exam: Present: other (Left arm PICC line). Absent: tenderness, pedal edema, calf tenderness Back exam: Absent: CVA tenderness (R), CVA tenderness (L) Neurological exam: Present: alert, oriented X3. Absent: motor sensory deficit Psychiatric exam: Present: normal affect Skin exam: Present: warm, dry, normal color Course Vital Signs 04/24/23 04/24/23 16:20 19:00 Temperature 97.9 F Pulse Rate 149 H 115 H Respiratory 18 18 Rate Blood Pressure 112/66 101/66 O2 Sat by Pulse 96 95 Oximetry - Reevaluation(s) Reevaluation #1: 04/24/23 21:40 Patient's tachycardia has now improved. Patient remains alert and breathing comfortably. Patient continues to have a soft and nontender abdominal exam. Patient is aware of his test results, and he agrees with hospital admission at this time. 04/24/23 21:44 Case, H&P, test results and ED management thus far were discussed with ETHEL Mensah. He accepts hospital admission on behalf of himself and Dr. Gregg. He agrees with infectious disease consultation. He has no further recommendations at this time. EKG Findings - EKG Comments: EKG Findings:: ED physician interpretation (interpreted by me): Sinus tachycardia, ventricular rate 138 bpm, a single PVC, normal IL and QRS intervals, normal QT interval, normal axis, no ST or T-wave abnormality Medical Decision Making - Medical Decision Making Was pt. sent in by a medical professional or institution (ETHEL Shaikh, SMALLTALK DEVELOPER, urgent care, hospital, or [facility]...) When possible be specific @ -No Did you speak to anyone other than the patient for history (EMS, parent, family, police, friend...)? What history was obtained from this source @ -History was also provided by the patient's . Did you review nursing and triage notes (agree or disagree)? Why? @ -I reviewed and agree with nursing and triage notes Were old charts reviewed (outside hosp., previous admission, EMS record, old EKG, old radiological studies, urgent care reports/EKG's, [facility] records)? Report findings @ -No old charts were reviewed Differential Diagnosis (chest pain, altered mental status, abdominal pain women, abdominal pain men, vaginal bleeding, weakness, fever, dyspnea, syncope, headache, dizziness, GI bleed, back pain, seizure, CVA, palpatations, mental health, musculoskeletal)? @ -Differential Fever: Pneumonia, viral URI, endocarditis, sinusitis, abscess, peritonitis, appendicitis, colitis, UTI, pyelonephritis, pancreatitis, anxiety, rigors, sepsis, this is not meant to be an all-inclusive list. EKG interpreted by me (3pts min.). @ -As above X-rays interpreted by me (1pt min.). @ -Chest x-ray was reviewed myself and shows no acute abnormality. I agree with the radiologist's interpretation as above. CT interpreted by me (1pt min.). @ -CT abdomen/pelvis with IV contrast was reviewed myself and shows improvement in the patient's multiple fluid collections and inflammatory changes. I agree with the radiologist's interpretation as above. U/S interpreted by me (1pt. min.). @ -None done What testing was considered but not performed or refused? (CT, X-rays, U/S, labs)? Why? @ -None What meds were considered but not given or refused? Why? @ -None Did you discuss the management of the patient with other professionals (professionals i.e. , PA, SMALLTALK DEVELOPER, lab, RT, psych nurse, oncology social worker, engine lathe set up operator tool, teacher, unclaimed property officer, advertising production manager)? Give summary @ -As above Was smoking cessation discussed for >3mins.? @ -No Was critical care preformed (if so, how long)? @ -No Were there social determinants of health that impacted care today? How? (Homelessness, low income, unemployed, alcoholism, drug addiction, transportation, low edu. Level, literacy, decrease access to med. care, longterm, rehab)? @ -No Was there de-escalation of care discussed even if they declined (Discuss DNR or withdrawal of care, Hospice)? DNR status @ -No What co-morbidities impacted this encounter? (DM, HTN, Smoking, COPD, CAD, Cancer, CVA, ARF, Chemo, Hep., AIDS, mental health diagnosis, sleep apnea, morbid obesity)? @ -None Was patient admitted / discharged? Hospital course, mention meds given and route, prescriptions, significant lab abnormalities, going to OR and other pertinent info. @ -Patient's tachycardia has improved while in the ED. Patient remains alert and breathing comfortably in the ED. Patient has a soft and nonsurgical abdominal exam. No definite etiology of the patient's reported fever and chills was found on ED evaluation. Patient's CT abdomen/pelvis shows improving fluid collections and inflammatory changes. Patient's chest x-ray is fairly unremarkable. Patient's UA and viral studies are negative. Given the patient's reported fevers and chills at home, as well as his complicated medical history (with multiple lines/tube/drains), will admit the patient to the hospital for continued monitoring and management. An ID consultation order was placed. Patient was treated with a dose of IV Zosyn in the ED. ETHEL Mensah has accepted hospital admission. Undiagnosed new problem with uncertain prognosis? @ -No Drug Therapy requiring intensive monitoring for toxicity (Heparin, Nitro, Insulin, Cardizem)? @ -No Were any procedures done? @ -No Diagnosis/symptom? @ -Febrile illness with chills Acute, or Chronic, or Acute on Chronic? @ -Acute Uncomplicated (without systemic symptoms) or Complicated (systemic symptoms)? @ -default Side effects of treatment? @ -No Exacerbation, Progression, or Severe Exacerbation? @ -No Poses a threat to life or bodily function? How? (Chest pain, USA, AR, pneumonia, PE, COPD, DKA, ARF, appy, cholecystitis, CVA, Diverticulitis, Homicidal, Suicidal, threat to staff... and all critical care pts) @ -No - Lab Data Result diagrams: 04/24/23 17:00 04/24/23 17:00 Lab Results 04/24/23 04/24/23 04/24/23 Range/Units 17:00 17:00 17:00 WBC 5.4 (3.8-10.6) k/uL RBC 4.80 (4.30-5.90) m/uL Hgb 13.9 (13.0-17.5) gm/dL Hct 41.6 (39.0-53.0) % MCV 86.6 (80.0-100.0) fL MCH 28.9 (25.0-35.0) pg MCHC 33.4 (31.0-37.0) g/dL RDW 15.9 H (11.5-15.5) % Plt Count 108 L (150-450) k/uL MPV 8.1 Neutrophils % 91 % Lymphocytes % 4 % Monocytes % 4 % Eosinophils % 1 % Basophils % 0 % Neutrophils # 4.9 (1.3-7.7) k/uL Lymphocytes # 0.2 L (1.0-4.8) k/uL Monocytes # 0.2 (0-1.0) k/uL Eosinophils # 0.1 (0-0.7) k/uL Basophils # 0.0 (0-0.2) k/uL PT 11.2 (10.0-12.5) sec INR 1.0 (<1.2) APTT 24.9 (22.0-30.0) sec Sodium 133 L (137-145) mmol/L Potassium 4.1 (3.5-5.1) mmol/L Chloride 104 (98-107) mmol/L Carbon Dioxide 18 L (22-30) mmol/L Anion Gap 11 mmol/L BUN 23 H (9-20) mg/dL Creatinine 0.59 L (0.66-1.25) mg/dL Est GFR (CKD-EPI)AfAm >90 (>60 ml/min/1.73 sqM) Est GFR (CKD-EPI)NonAf >90 (>60 ml/min/1.73 sqM) Glucose 121 H (74-99) mg/dL Plasma Lactic Acid Jimmy (0.7-2.0) mmol/L Calcium 8.9 (8.4-10.2) mg/dL Total Bilirubin 1.0 (0.2-1.3) mg/dL AST 49 (17-59) U/L ALT 42 (4-49) U/L Alkaline Phosphatase 136 H (38-126) U/L Troponin I (0.000-0.034) ng/mL Total Protein 6.6 (6.3-8.2) g/dL Albumin 3.2 L (3.5-5.0) g/dL Amylase 35 (30-110) U/L Lipase 65 (23-300) U/L Urine Color Urine Appearance (Clear) Urine pH (5.0-8.0) Ur Specific [place] (1.001-1.035) Urine Protein (Negative) Urine Glucose (UA) (Negative) Urine Ketones (Negative) Urine Blood (Negative) Urine Nitrite (Negative) Urine Bilirubin (Negative) Urine Urobilinogen (<2.0) mg/dL Ur Leukocyte Esterase (Negative) Influenza Type A (PCR) (Not Detectd) Influenza Type B (PCR) (Not Detectd) RSV (PCR) (Not Detectd) SARS-CoV-2 (PCR) (Not Detectd) 04/24/23 04/24/23 04/24/23 Range/Units 17:00 17:00 17:00 WBC (3.8-10.6) k/uL RBC (4.30-5.90) m/uL Hgb (13.0-17.5) gm/dL Hct (39.0-53.0) % MCV (80.0-100.0) fL MCH (25.0-35.0) pg MCHC (31.0-37.0) g/dL RDW (11.5-15.5) % Plt Count (150-450) k/uL MPV Neutrophils % % Lymphocytes % % Monocytes % % Eosinophils % % Basophils % % Neutrophils # (1.3-7.7) k/uL Lymphocytes # (1.0-4.8) k/uL Monocytes # (0-1.0) k/uL Eosinophils # (0-0.7) k/uL Basophils # (0-0.2) k/uL PT (10.0-12.5) sec INR (<1.2) APTT (22.0-30.0) sec Sodium (137-145) mmol/L Potassium (3.5-5.1) mmol/L Chloride (98-107) mmol/L Carbon Dioxide (22-30) mmol/L Anion Gap mmol/L BUN (9-20) mg/dL Creatinine (0.66-1.25) mg/dL Est GFR (CKD-EPI)AfAm (>60 ml/min/1.73 sqM) Est GFR (CKD-EPI)NonAf (>60 ml/min/1.73 sqM) Glucose (74-99) mg/dL Plasma Lactic Acid Jimmy 1.3 (0.7-2.0) mmol/L Calcium (8.4-10.2) mg/dL Total Bilirubin (0.2-1.3) mg/dL AST (17-59) U/L ALT (4-49) U/L Alkaline Phosphatase (38-126) U/L Troponin I <0.012 (0.000-0.034) ng/mL Total Protein (6.3-8.2) g/dL Albumin (3.5-5.0) g/dL Amylase (30-110) U/L Lipase (23-300) U/L Urine Color Urine Appearance (Clear) Urine pH (5.0-8.0) Ur Specific [place] (1.001-1.035) Urine Protein (Negative) Urine Glucose (UA) (Negative) Urine Ketones (Negative) Urine Blood (Negative) Urine Nitrite (Negative) Urine Bilirubin (Negative) Urine Urobilinogen (<2.0) mg/dL Ur Leukocyte Esterase (Negative) Influenza Type A (PCR) Not Detected (Not Detectd) Influenza Type B (PCR) Not Detected (Not Detectd) RSV (PCR) Not Detected (Not Detectd) SARS-CoV-2 (PCR) Not Detected (Not Detectd) 04/24/23 Range/Units 20:05 WBC (3.8-10.6) k/uL RBC (4.30-5.90) m/uL Hgb (13.0-17.5) gm/dL Hct (39.0-53.0) % MCV (80.0-100.0) fL MCH (25.0-35.0) pg MCHC (31.0-37.0) g/dL RDW (11.5-15.5) % Plt Count (150-450) k/uL MPV Neutrophils % % Lymphocytes % % Monocytes % % Eosinophils % % Basophils % % Neutrophils # (1.3-7.7) k/uL Lymphocytes # (1.0-4.8) k/uL Monocytes # (0-1.0) k/uL Eosinophils # (0-0.7) k/uL Basophils # (0-0.2) k/uL PT (10.0-12.5) sec INR (<1.2) APTT (22.0-30.0) sec Sodium (137-145) mmol/L Potassium (3.5-5.1) mmol/L Chloride (98-107) mmol/L Carbon Dioxide (22-30) mmol/L Anion Gap mmol/L BUN (9-20) mg/dL Creatinine (0.66-1.25) mg/dL Est GFR (CKD-EPI)AfAm (>60 ml/min/1.73 sqM) Est GFR (CKD-EPI)NonAf (>60 ml/min/1.73 sqM) Glucose (74-99) mg/dL Plasma Lactic Acid Jimmy (0.7-2.0) mmol/L Calcium (8.4-10.2) mg/dL Total Bilirubin (0.2-1.3) mg/dL AST (17-59) U/L ALT (4-49) U/L Alkaline Phosphatase (38-126) U/L Troponin I (0.000-0.034) ng/mL Total Protein (6.3-8.2) g/dL Albumin (3.5-5.0) g/dL Amylase (30-110) U/L Lipase (23-300) U/L Urine Color Yellow Urine Appearance Clear (Clear) Urine pH 5.0 (5.0-8.0) Ur Specific [place] >1.050 H (1.001-1.035) Urine Protein Negative (Negative) Urine Glucose (UA) Negative (Negative) Urine Ketones Negative (Negative) Urine Blood Negative (Negative) Urine Nitrite Negative (Negative) Urine Bilirubin Negative (Negative) Urine Urobilinogen <2.0 (<2.0) mg/dL Ur Leukocyte Esterase Negative (Negative) Influenza Type A (PCR) (Not Detectd) Influenza Type B (PCR) (Not Detectd) RSV (PCR) (Not Detectd) SARS-CoV-2 (PCR) (Not Detectd) - Radiology Data Chest x-ray: No acute cardiopulmonary disease/process. CT abdomen/pelvis with IV contrast: 1. Redemonstration of chronic findings of necrotizing pancreatitis, with interval improvement in multiple fluid collections and inflammatory changes which were seen on prior exams. 2. Stable positioning of intra-abdominal pigtail catheters. Disposition Clinical Impression: Acute febrile illness, Chills, Sinus tachycardia Disposition: ADMITTED IP TO THIS HOSP Condition: Stable Is patient prescribed a controlled substance at d/c from ED?: No Referrals: Sade Esteves MD [Primary Care Provider] - 1-2 days Time of Disposition: 22:03
[2023-04-24] MEDS ORDERED: LORazepam 2 MG/ML INJ IV STA (16:47)
[2023-04-24] MEDS ORDERED: SODIUM CHLORIDE 0.9% 1,000 ML IV ONE (16:47)
[2023-04-24] MEDS ORDERED: PIPERACILLIN-TAZOBACTAM 3.375 GM in SODIUM CHLORIDE 0.9% 100 ML IVPB STA (16:48)
--- NOTE | 2023-04-24 17:11 | XR ---
EXAMINATION TYPE: XR chest 1V portable DATE OF EXAM: 04/24/2023 5:07 PM CLINICAL INDICATION:Male, 67 years old with history of Fever. COMPARISON: Chest radiographs from TECHNIQUE: XR chest 1V portable Frontal view of the chest. FINDINGS: Lungs/Pleura: There is no evidence of pleural effusion, focal consolidation, or pneumothorax. Pulmonary vascularity: Unremarkable. Heart/mediastinum: Cardiomediastinal silhouette is unremarkable. Musculoskeletal: No acute osseous pathology. Right upper quadrant postsurgical clips. IMPRESSION: No acute cardiopulmonary disease/process.
[2023-04-24 17:20] LABS: Basophils % (A) 0 %; Eosinophils # (A) 0.1 k/uL (0-0.7); Eosinophils % (A) 1 %; HCT 41.6 % (39.0-53.0); HGB 13.9 gm/dL (13.0-17.5); Lymphocytes # (A) 0.2 k/uL (1.0-4.8); Lymphocytes % (A) 4 %; MCH 28.9 pg (25.0-35.0); MCHC 33.4 g/dL (31.0-37.0); MCV 86.6 fL (80.0-100.0); Mean Platelet Volume 8.1; Monocytes # (A) 0.2 k/uL (0-1.0); Monocytes % (A) 4 %; Neutrophils # (A) 4.9 k/uL (1.3-7.7); Neutrophils % (A) 91 %; Platelet Count 108 k/uL (150-450); RDW 15.9 % (11.5-15.5); WBC 5.4 k/uL (3.8-10.6)
[2023-04-24 17:33] LABS: Partial Thromboplastin Time 24.9 sec (22.0-30.0); Prothrombin Time 11.2 sec (10.0-12.5)
[2023-04-24 17:34] LABS: ALT 42 U/L (4-49); AST 49 U/L (17-59); African American GFR (CKD) >90 (>60 ml/min/1.73 sqM); Albumin 3.2 g/dL (3.5-5.0); Alkaline Phosphatase 136 U/L (38-126); Amylase 35 U/L (30-110); Anion Gap 11 mmol/L; Blood Urea Nitrogen 23 mg/dL (9-20); Calcium 8.9 mg/dL (8.4-10.2); Carbon Dioxide 18 mmol/L (22-30); Chloride 104 mmol/L (98-107); Glucose 121 mg/dL (74-99); Lipase 65 U/L (23-300); Non-African American GFR(CKD) >90 (>60 ml/min/1.73 sqM); Potassium 4.1 mmol/L (3.5-5.1); Sodium 133 mmol/L (137-145); Total Protein 6.6 g/dL (6.3-8.2)
--- NOTE | 2023-04-24 18:50 | CT ---
EXAMINATION TYPE: CT abdomen pelvis w con CT DLP: 1193.3 mGycm, Automated exposure control for dose reduction was used. DATE OF EXAM: 04/24/2023 6:41 PM COMPARISON: CT abdomen 03/09/2023. CLINICAL INDICATION:Male, 67 years old with history of Fever, chills, history of necrotizing pancreat itis TECHNIQUE: Axial CT of the abdomen and pelvis. Sagittal and coronal reformats were created on a [employer] workstation. Contrast used:100 cc mL of Isovue 300 with IV Contrast, (none if empty) Oral contrast used: without Oral Contrast (none if empty) FINDINGS: LOWER CHEST: Unremarkable ABDOMEN LIVER: Unremarkable GALLBLADDER AND BILE DUCTS: The gallbladder surgically absent. No evidence of biliary duct dilation. PANCREAS: Redemonstration of chronic surrounding inflammatory changes involving the pancreas. Previou sly described pseudocyst formation in the pancreatic tail is improved in size. Pigtail catheters are seen entering the right abdomen with tips near the pancreatic body. The previously visualized collect ion in this region is also improved in size. Inflammatory changes and small residual fluid is identif ied anterior aspect of the left abdomen, also improved. No new fluid collections are identified. SPLEEN: Stable splenomegaly. ADRENAL GLANDS: Unremarkable. KIDNEYS AND URETERS: No evidence of hydronephrosis or renal calculus. The ureters are unremarkable. PELVIS BLADDER: Unremarkable REPRODUCTIVE: Unremarkable. ABDOMEN & PELVIS STOMACH AND BOWEL: Stomach and duodenum are unremarkable. No evidence of bowel obstruction. PEG tube is in place. PERITONEUM/RETROPERITONEUM: No evidence of pneumoperitoneum or free fluid. VASCULATURE: No evidence of aortic aneurysm. MUSCULOSKELETAL: No acute osseous abnormalities. Mild disc degeneration changes are present throughou t the thoracolumbar spine. LYMPH NODES: A few prominent gastrohepatic lymph nodes are present, stable. SOFT TISSUE/ABDOMINAL WALL: Unremarkable IMPRESSION: 1. Redemonstration of chronic findings of necrotizing pancreatitis, with interval improvement in mult iple fluid collections and inflammatory changes which were seen on prior exams. 2. Stable positioning of intra-abdominal pigtail catheters.
[2023-04-24 20:43] LABS: Appearance,Urine Clear (Clear); Bilirubin,Urine Negative (Negative); Blood,Urine Negative (Negative); Color,Urine Yellow; Glucose,Urine (UA) Negative (Negative); Ketones,Urine Negative (Negative); Leukocyte Esterase,Urine Negative (Negative); Nitrite,Urine Negative (Negative); Protein,Urine Negative (Negative); Urobilinogen,Urine <2.0 mg/dL (<2.0)
[2023-04-24 21:29] LABS: Specific Gravity,Urine >1.050 (1.001-1.035)
[2023-04-24] MEDS ORDERED: NALOXONE 0.4 MG/ML 1 ML VIAL IV PRN (22:04)
[2023-04-25 07:55] LABS: HCT 35.7 % (39.0-53.0); HGB 11.8 gm/dL (13.0-17.5); MCH 29.1 pg (25.0-35.0); Mean Platelet Volume 8.8; Platelet Count 100 k/uL (150-450); RBC 4.05 m/uL (4.30-5.90); WBC 2.6 k/uL (3.8-10.6)
[2023-04-25 08:39] LABS: ALT 40 U/L (4-49); AST 43 U/L (17-59); African American GFR (CKD) >90 (>60 ml/min/1.73 sqM); Albumin 2.5 g/dL (3.5-5.0); Alkaline Phosphatase 101 U/L (38-126); Anion Gap 7 mmol/L; Blood Urea Nitrogen 22 mg/dL (9-20); Carbon Dioxide 22 mmol/L (22-30); Chloride 106 mmol/L (98-107); Glucose 136 mg/dL (74-99); Non-African American GFR(CKD) >90 (>60 ml/min/1.73 sqM); Potassium 4.2 mmol/L (3.5-5.1); Sodium 135 mmol/L (137-145); Total Bilirubin 0.6 mg/dL (0.2-1.3); Total Protein 5.5 g/dL (6.3-8.2)
[2023-04-25 09:28] LABS: Basophils # (M) 0.03 k/uL (0-0.2); Eosinophils # (M) 0.08 k/uL (0-0.7); Lymphocytes # (M) 0.44 k/uL (1.0-4.8); Monocytes # (M) 0.31 k/uL (0-1.0); Neutrophils # (M) 1.74 k/uL (1.3-7.7); Neutrophils % (M) 67 %; Nucleated Red Blood Cells 0 /100 WBC (0-0); Total Cells Counted 100
[2023-04-25 09:29] LABS: RBC Morphology Normal
[2023-04-25] MEDS ORDERED: ONDANSETRON 4 MG TAB PEG/G-TUBE PRN (10:58)
[2023-04-25] MEDS: PANTOPRAZOLE 40 MG TABLET PO SCH (12:13)
[2023-04-25] MEDS: PIPERACILLIN-TAZOBACTAM 3.375 GM in SODIUM CHLORIDE 0.9% 100 ML IVPB SCH ×2 (12:13→21:16)
[2023-04-25] MEDS: ALPRAZolam 0.25 MG TAB PEG/G-TUBE PRN ×2 (12:13→23:08)
--- NOTE | 2023-04-25 18:00 | P.HPIM ---
History of Present Illness H&P Date: 04/25/23 Chief Complaint: Fever/chills Patient presents to the ED with his for evaluation. 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 Patient states that he had a drain placed at the site of a fluid collection in his abdomen at that time, and he states that he continues to have drain output. Patient states that he also had a GJ tube placed, and he has a left arm PICC line in place for daily TPN. Patient states that he is being followed at [facility]. Patient states that for the past 3 days, he has had severe chills intermittently, and states that the patient had a temperature of 102 Fahrenheit at about 2 AM this morning. states that the patient last had a dose of any antipyretic medication (Tylenol) early this morning. Patient also states that he feels very anxious. Patient states that he called [facility], but he states that they told him he would likely have to wait for over 8 hours before being able to be seen in their ED, so they advised that he come to our ED for a CT scan to look for a source of infection. Patient states that he has constant nausea and diarrhea due to being on a liquid diet. Patient denies headache, focal neuro deficit, sore throat, neck pain or stiffness, chest pain, dyspnea, cough or cold symptoms, palpitations, dizziness, abdominal pain, bloody or melanotic stool, dysuria/hematuria/urinary frequency/urinary symptoms, or any other symptoms or complaints. CT abdomen/pelvis shows improving fluid collections and inflammatory changes. Chest x-ray is fairly unremarkable. Patient's UA and viral studies are negative. Given the patient's reported fevers and chills at home, as well as his complicated medical history (with multiple lines/tube/drains), patient is recommended to be admitted to the hospital for further evaluation and treatment. An ID consultation order was placed. Patient has been placed on IV Zosyn until further evaluation by ID Review of Systems REVIEW OF SYSTEMS: CONSTITUTIONAL: Fever and chills as reported in H&P, no malaise, no fatigue. HEENT: No recent visual problems or hearing problems. Denied any sore throat. CARDIOVASCULAR: No chest pain, orthopnea, PND, no palpitations, no syncope. PULMONARY: No shortness of breath, no cough, no hemoptysis. GASTROINTESTINAL: No diarrhea, no nausea, no vomiting, no abdominal pain. NEUROLOGICAL: No headaches, no weakness, no numbness. HEMATOLOGICAL: Denies any bleeding or petechiae. GENITOURINARY: Denies any burning micturition, frequency, or urgency. MUSCULOSKELETAL/RHEUMATOLOGICAL: Denies any joint pain, swelling, or any muscle pain. ENDOCRINE: Denies any polyuria or polydipsia. The rest of the 14-point review of systems is negative. Past Medical History Past Medical History: Cancer, GERD/Reflux, Hyperlipidemia, Hypertension, Osteoarthritis (OA) Additional Past Medical History / Comment(s): pneumothorax, skin cancer-basal cell History of Any Multi-Drug Resistant Organisms: None Reported Past Surgical History: Cholecystectomy, Orthopedic Surgery Additional Past Surgical History / Comment(s): left thumb ligament reattached,rt rotator cuff repair, left knee surgery, basal cell removal - face, abdominal surgery, peg tube placement Past Anesthesia/Blood Transfusion Reactions: No Reported Reaction Past Psychological History: No Psychological Hx Reported Smoking Status: Former smoker Past Alcohol Use History: None Reported Past Drug Use History: None Reported - Past Family History Mother Family Medical History: Cancer Medications and Allergies Home Medications Medication Instructions Recorded Confirmed Type Simvastatin [Zocor] 20 mg PEG/G-TUBE HS 09/18/14 04/24/23 History Baclofen 10 mg PEG/G-TUBE HS PRN 01/21/21 04/24/23 History Omeprazole [PriLOSEC] 20 mg PO DAILY@1200 01/21/21 04/24/23 History Sildenafil [Revatio] 20 mg PO DAILY PRN 04/17/21 04/24/23 History ALPRAZolam [Xanax] 0.25 mg PEG/G-TUBE Q8H PRN 04/24/23 04/24/23 History Ondansetron [Zofran] 4 mg PEG/G-TUBE Q8HR PRN 04/24/23 04/24/23 History Allergies Allergy/AdvReac Type Severity Reaction Status Date / Time fentanyl Allergy Nausea & Verified 04/24/23 18:25 Vomiting tramadol Allergy Nausea & Verified 04/24/23 18:25 Vomiting codeine AdvReac Nausea & Verified 04/24/23 18:25 Vomiting hydrocodone bitartrate AdvReac Nausea & Verified 04/24/23 18:25 [From [place]] Vomiting Physical Exam Vitals: Vital Signs Temp Pulse Resp BP Pulse Ox 04/25/23 10:18 106 H 18 104/68 97 04/25/23 08:37 104 H 18 104/76 97 04/25/23 04:00 105 H 16 110/63 95 04/24/23 22:00 104 H 16 106/65 95 04/24/23 19:00 115 H 18 101/66 95 04/24/23 16:20 97.9 F 149 H 18 112/66 96 Intake and Output 04/24/23 04/25/23 04/25/23 22:59 06:59 14:59 Other: Weight 79.379 kg PHYSICAL EXAMINATION: GENERAL: The patient is alert and oriented x3, not in any acute distress. Well developed, well nourished. HEENT: Pupils are round and equally reacting to light. EOMI. No scleral icterus. No conjunctival pallor. Normocephalic, atraumatic. No pharyngeal erythema. No thyromegaly. CARDIOVASCULAR: S1 and S2 present. No murmurs, rubs, or gallops. PULMONARY: Chest is clear to auscultation, no wheezing or crackles. ABDOMEN: Soft, nontender, nondistended, normoactive bowel sounds. No palpable organomegaly. MUSCULOSKELETAL: No joint swelling or deformity. EXTREMITIES: No cyanosis, clubbing, or pedal edema. NEUROLOGICAL: Gross neurological examination did not reveal any focal deficits. SKIN: No rashes. Results CBC & Chem 7: 04/25/23 07:22 04/25/23 07:22 Labs: Abnormal Lab Results - Last 24 Hours (Table) 04/24/23 04/24/23 04/24/23 Range/Units 17:00 17:00 20:05 WBC (3.8-10.6) k/uL RBC (4.30-5.90) m/uL Hgb (13.0-17.5) gm/dL Hct (39.0-53.0) % RDW 15.9 H (11.5-15.5) % Plt Count 108 L (150-450) k/uL Lymphocytes # 0.2 L (1.0-4.8) k/uL Lymphocytes # (Manual) (1.0-4.8) k/uL Sodium 133 L (137-145) mmol/L Carbon Dioxide 18 L (22-30) mmol/L BUN 23 H (9-20) mg/dL Creatinine 0.59 L (0.66-1.25) mg/dL Glucose 121 H (74-99) mg/dL Calcium (8.4-10.2) mg/dL Alkaline Phosphatase 136 H (38-126) U/L Total Protein (6.3-8.2) g/dL Albumin 3.2 L (3.5-5.0) g/dL Ur Specific [place] >1.050 H (1.001-1.035) 04/25/23 04/25/23 Range/Units 07:22 07:22 WBC 2.6 L (3.8-10.6) k/uL RBC 4.05 L (4.30-5.90) m/uL Hgb 11.8 L (13.0-17.5) gm/dL Hct 35.7 L (39.0-53.0) % RDW 16.0 H (11.5-15.5) % Plt Count 100 L (150-450) k/uL Lymphocytes # (1.0-4.8) k/uL Lymphocytes # (Manual) 0.44 L (1.0-4.8) k/uL Sodium 135 L (137-145) mmol/L Carbon Dioxide (22-30) mmol/L BUN 22 H (9-20) mg/dL Creatinine 0.53 L (0.66-1.25) mg/dL Glucose 136 H (74-99) mg/dL Calcium 8.0 L (8.4-10.2) mg/dL Alkaline Phosphatase (38-126) U/L Total Protein 5.5 L (6.3-8.2) g/dL Albumin 2.5 L (3.5-5.0) g/dL Ur Specific [place] (1.001-1.035) Assessment and Plan Assessment: 1. Fever/chills; possible sepsis - Workup completed in ED has been negative for any infection - Patient has been pancultured and placed on IV Zosyn - ID is consulted for further recommendations; appreciate input 2. Hypertension 3. Hyperlipidemia; Zocor 20 mg daily 4. Anxiety; continue with home dose of Xanax 0.25 mg every 8 hours when necessary 5. GERD/gastritis; continue with PPI DVT prophylaxis; SCDs CODE STATUS; full code
--- NOTE | 2023-04-25 19:10 | P.CONS ---
History of Present Illness - Reason for Consult Consult date: 04/25/23 - History of Present Illness Patient is a 67-year-old male with a past medical history significant of hypertension hyperlipidemia osteoarthritis reflux patient did have history of necrotizing pancreatitis and apparently pancreatic pseudocyst for the patient has been treated to [facility] and the patient did have a drainage tube placement patient also have a PICC line for TPN patient is presenting to [facility] ER as the patient complaining of chills intermittently and fever that has been going on for the last 3 days and did have a temperature of 102 F the morning of presentation to the hospital patient denies having any headache or URI symptoms patient denies having any chest pain shortness of breath or cough the patient abdominal pain has decreased in intensity no nausea vomiting denies any abdominal pain diarrhea no urinary symptoms on presentation to the hospital the patient was afebrile and no fever has been recorded subsequently patient was tachycardic he did have a normal white count slightly leukopenic today 2.6 BUN/creatinine has been normal limits of the normal urine is negative influenza RSV and COVID testing was negative patient did have a CT of abdominal pelvis chronic findings of necrotizing pancreatitis with interval improvement in the multiple fluid collection in extremity changes patient was started on Zosyn blood culture obtained currently pending infectious disease was consulted for further management of antibiotic therapy Past Medical History Past Medical History: Cancer, GERD/Reflux, Hyperlipidemia, Hypertension, Osteoarthritis (OA) Additional Past Medical History / Comment(s): pneumothorax, skin cancer-basal cell History of Any Multi-Drug Resistant Organisms: None Reported Past Surgical History: Cholecystectomy, Orthopedic Surgery Additional Past Surgical History / Comment(s): left thumb ligament reattached,rt rotator cuff repair, left knee surgery, basal cell removal - face, abdominal surgery, peg tube placement Past Anesthesia/Blood Transfusion Reactions: No Reported Reaction Past Psychological History: No Psychological Hx Reported Smoking Status: Former smoker Past Alcohol Use History: None Reported Past Drug Use History: None Reported - Past Family History Mother Family Medical History: Cancer Medications and Allergies Home Medications Medication Instructions Recorded Confirmed Type Simvastatin [Zocor] 20 mg PEG/G-TUBE HS 09/18/14 04/24/23 History Baclofen 10 mg PEG/G-TUBE HS PRN 01/21/21 04/24/23 History Omeprazole [PriLOSEC] 20 mg PO DAILY@1200 01/21/21 04/24/23 History Sildenafil [Revatio] 20 mg PO DAILY PRN 04/17/21 04/24/23 History ALPRAZolam [Xanax] 0.25 mg PEG/G-TUBE Q8H PRN 04/24/23 04/24/23 History Ondansetron [Zofran] 4 mg PEG/G-TUBE Q8HR PRN 04/24/23 04/24/23 History Allergies Allergy/AdvReac Type Severity Reaction Status Date / Time fentanyl Allergy Nausea & Verified 04/24/23 18:25 Vomiting tramadol Allergy Nausea & Verified 04/24/23 18:25 Vomiting codeine AdvReac Nausea & Verified 04/24/23 18:25 Vomiting hydrocodone bitartrate AdvReac Nausea & Verified 04/24/23 18:25 [From [place]] Vomiting Physical Exam Vitals: Vital Signs Temp Pulse Resp BP Pulse Ox 04/25/23 12:11 97.8 F 102 H 18 111/77 98 04/25/23 10:18 106 H 18 104/68 97 04/25/23 08:37 104 H 18 104/76 97 04/25/23 04:00 105 H 16 110/63 95 04/24/23 22:00 104 H 16 106/65 95 04/24/23 19:00 115 H 18 101/66 95 04/24/23 16:20 97.9 F 149 H 18 112/66 96 Intake and Output 04/24/23 04/25/23 04/25/23 22:59 06:59 14:59 Other: Weight 79.379 kg Results CBC & Chem 7: 04/25/23 07:22 04/25/23 07:22 Labs: Abnormal Lab Results - Last 24 Hours (Table) 04/24/23 04/24/23 04/24/23 Range/Units 17:00 17:00 20:05 WBC (3.8-10.6) k/uL RBC (4.30-5.90) m/uL Hgb (13.0-17.5) gm/dL Hct (39.0-53.0) % RDW 15.9 H (11.5-15.5) % Plt Count 108 L (150-450) k/uL Lymphocytes # 0.2 L (1.0-4.8) k/uL Lymphocytes # (Manual) (1.0-4.8) k/uL Sodium 133 L (137-145) mmol/L Carbon Dioxide 18 L (22-30) mmol/L BUN 23 H (9-20) mg/dL Creatinine 0.59 L (0.66-1.25) mg/dL Glucose 121 H (74-99) mg/dL Calcium (8.4-10.2) mg/dL Alkaline Phosphatase 136 H (38-126) U/L Total Protein (6.3-8.2) g/dL Albumin 3.2 L (3.5-5.0) g/dL Ur Specific [place] >1.050 H (1.001-1.035) 04/25/23 04/25/23 Range/Units 07:22 07:22 WBC 2.6 L (3.8-10.6) k/uL RBC 4.05 L (4.30-5.90) m/uL Hgb 11.8 L (13.0-17.5) gm/dL Hct 35.7 L (39.0-53.0) % RDW 16.0 H (11.5-15.5) % Plt Count 100 L (150-450) k/uL Lymphocytes # (1.0-4.8) k/uL Lymphocytes # (Manual) 0.44 L (1.0-4.8) k/uL Sodium 135 L (137-145) mmol/L Carbon Dioxide (22-30) mmol/L BUN 22 H (9-20) mg/dL Creatinine 0.53 L (0.66-1.25) mg/dL Glucose 136 H (74-99) mg/dL Calcium 8.0 L (8.4-10.2) mg/dL Alkaline Phosphatase (38-126) U/L Total Protein 5.5 L (6.3-8.2) g/dL Albumin 2.5 L (3.5-5.0) g/dL Ur Specific [place] (1.001-1.035) Assessment and Plan Plan: 1patient presenting to the hospital with fever in this patient with a complicated history of necrotizing pancreatitis and possibly pancreatic pseudocyst requiring drainage catheter placement patient also have a PICC line for TPN for more than a month now with the source of the fever possible PICC line as the patient is here abdominal pelvis shows overall improvement patient is breathing comfortably on room air and no urinary symptoms 2-blood culture obtained and will be followed 3-continue with the Zosyn while waiting for the culture to finalize We will follow on clinical condition and cultures to further adjust medication if needed Thank you for this consultation we will follow the patient along with you Dictation was produced using [employer] dictation software. please excuse any grammatical, word or spelling errors. Time with Patient: Greater than 30
[2023-04-25] MEDS: ATORVASTATIN 10 MG TAB PEG/G-TUBE SCH (23:52)
[2023-04-26] MEDS: PIPERACILLIN-TAZOBACTAM 3.375 GM in SODIUM CHLORIDE 0.9% 100 ML IVPB SCH ×4 (02:47→19:08)
[2023-04-26 11:33] LABS: BUN/Creat Ratio 28.86 Ratio (12.00-20.00); Blood Urea Nitrogen 20.2 mg/dL (9.0-27.0); Calcium 8.7 mg/dL (8.7-10.3); Carbon Dioxide 20.4 mmol/L (21.6-31.8); Chloride 105 mmol/L (96-109); Glucose 136 mg/dL (70-110); Potassium 4.5 mmol/L (3.5-5.5); Sodium 137 mmol/L (135-145)
[2023-04-26 11:46] LABS: Basophils # (A) 0.01 X 10*3/uL (0.00-0.10); Basophils % (A) 0.4 %; Eosinophils # (A) 0.19 X 10*3/uL (0.04-0.35); Eosinophils % (A) 6.8 %; HCT 37.3 % (39.6-50.0); HGB 12.1 d/dL (13.0-17.0); Immature Grans, Automated 0 %; Lymphocytes # (A) 0.51 X 10*3/uL (0.90-5.00); Lymphocytes % (A) 18.1 %; MCH 28.1 pg (27.0-32.0); MCHC 32.4 d/dL (32.0-37.0); MCV 86.7 FL (80.0-97.0); Mean Platelet Volume 10.9 FL (9.5-12.2); Monocytes # (A) 0.37 X 10*3/uL (0.20-1.00); Monocytes % (A) 13.2 %; NRBC Per 100 WBC 0 X 10*3/uL (0.00-0.01); Neutrophils # (A) 1.73 X 10*3/uL (1.80-7.70); Neutrophils % (A) 61.5 %; Platelet Count 135 X 10*3/uL (140-440); RDW 15.9 % (11.5-14.5); WBC 2.81 X 10*3/uL (4.50-10.00)
[2023-04-26] MEDS: PANTOPRAZOLE 40 MG TABLET PO SCH (13:04)
[2023-04-26] MEDS: ALPRAZolam 0.25 MG TAB PEG/G-TUBE PRN ×2 (13:04→21:22)
--- NOTE | 2023-04-26 13:43 | P.PN ---
Subjective Progress Note Date: 04/26/23 This is a pleasant 67-year-old male admitted due to fever chills recent history of necrotizing pancreatitis patient has a drainage tube in place coming from the mid abdomen as well as a GJ drain for TPN and nutrition. His main care has been at [facility]. His pro-calcitonin was elevated at 8.94. Patient has IV zosyn in place with ID following. Patient reports no more episodes of fever/chills so far. Concern for PICC line as source of infection and blood cultures are pending. Review of Systems Constitutional: Denied any fatigue denied any fever. Cardio vascular: denied any chest pain, palpitations Gastrointestinal: denied any nausea, vomiting, diarrhea Pulmonary: Denied any shortness of breath cough Neurologic denied any new focal deficits All inpatient medications were reviewed and appropriate changes in these medications as dictated in the interval history and assessment and plan. PHYSICAL EXAMINATION: GENERAL: The patient is alert and oriented x3, not in any acute distress. Well developed, well nourished. HEENT: Pupils are round and equally reacting to light. EOMI. No scleral icterus. No conjunctival pallor. Normocephalic, atraumatic. No pharyngeal erythema. No thyromegaly. CARDIOVASCULAR: S1 and S2 present. No murmurs, rubs, or gallops. PULMONARY: Chest is clear to auscultation, no wheezing or crackles. ABDOMEN: Soft, nontender, nondistended, normoactive bowel sounds. No palpable organomegaly. GJ tube in place clean and dry surrounding access site. Pigtail catheter in place mid abdomen to drainage bag. MUSCULOSKELETAL: No joint swelling or deformity. EXTREMITIES: No cyanosis, clubbing, or pedal edema. NEUROLOGICAL: Gross neurological examination did not reveal any focal deficits. SKIN: No rashes. Assessment Fever/chills; possible sepsis pending blood cultures source of infection possibly PICC line. Necrotizing pancreatitis diagnosed in January of this year. F/U CT shows improvement in pseudocyst at the pancreatic tail. Inflammatory changes and fluid collection have also improved on imaging. Pigtail drainage catheter remains in place. Hypertension Hyperlipidemia Anxiety GERD/gastritis; continue with PPI Former Smoker GI prophylaxis Full Code Plan Continue with clear liquid diet and TPN for nutrition through GJ tube Pigtail catheter remains in place and draining Continue IV zosyn with cultures pending awaiting final blood culture The impression and plan of care has been dictated by Jyotsna Rodrigues Nurse Practitioner as directed. Dr. Conchis MD I have performed a history and physical examination and medical decision making of this patient, discussed the same with the dictator, and agree with the dictators assessment and plan as written, documented as a scribe. Based on total visit time, I have performed more than 50% of this visit. Objective - Vital Signs Vital signs: Vital Signs Temp 97.5 F L 04/26/23 07:00 Pulse 93 04/26/23 07:00 Resp 15 04/26/23 08:00 BP 120/73 04/26/23 07:00 Pulse Ox 93 L 04/26/23 07:00 FiO2 Intake & Output 04/25/23 04/26/23 04/26/23 18:59 06:59 18:59 Output Total 200 Balance -200 Weight 79.379 kg Output: Urine 200 Other: Voiding Method Urinal Urinal # Voids 1 - Labs CBC & Chem 7: 04/26/23 08:03 04/26/23 08:03 Labs: Abnormal Lab Results - Last 24 Hours (Table) 04/25/23 04/26/23 04/26/23 Range/Units 12:19 08:03 08:03 WBC 2.81 L (4.50-10.00) X 10*3/uL RBC 4.30 L (4.40-5.60) X 10*6/uL Hgb 12.1 L (13.0-17.0) d/dL Hct 37.3 L (39.6-50.0) % RDW 15.9 H (11.5-14.5) % Plt Count 135 L (140-440) X 10*3/uL Neutrophils # 1.73 L (1.80-7.70) X 10*3/uL Lymphocytes # 0.51 L (0.90-5.00) X 10*3/uL Carbon Dioxide 20.4 L (21.6-31.8) mmol/L BUN/Creatinine Ratio 28.86 H (12.00-20.00) Ratio Glucose 136 H (70-110) mg/dL Procalcitonin 8.94 H (0.02-0.09) ng/mL Microbiology - Last 24 Hours (Table) 04/24/23 17:00 Blood Culture - Preliminary Blood 04/24/23 17:00 Blood Culture - Preliminary Blood Assessment and Plan Time with Patient: Less than 30
[2023-04-26] MEDS: ATORVASTATIN 10 MG TAB PEG/G-TUBE SCH (21:18)
[2023-04-27] MEDS: PIPERACILLIN-TAZOBACTAM 3.375 GM in SODIUM CHLORIDE 0.9% 100 ML IVPB SCH ×3 (03:16→18:57)
[2023-04-27 09:05] LABS: ALT 32 U/L (4-49); AST 28 U/L (17-59); African American GFR (CKD) >90 (>60 ml/min/1.73 sqM); Albumin 2.9 g/dL (3.5-5.0); Albumin/Globulin Ratio 0.9; Alkaline Phosphatase 98 U/L (38-126); Anion Gap 9 mmol/L; Blood Urea Nitrogen 23 mg/dL (9-20); Calcium 8.6 mg/dL (8.4-10.2); Carbon Dioxide 21 mmol/L (22-30); Chloride 108 mmol/L (98-107); Globulin 3.2 g/dL; Glucose 136 mg/dL (74-99); Magnesium 2.1 mg/dL (1.6-2.3); Non-African American GFR(CKD) >90 (>60 ml/min/1.73 sqM); Phosphorus 4.4 mg/dL (2.5-4.5); Potassium 4.6 mmol/L (3.5-5.1); Sodium 138 mmol/L (137-145); Total Bilirubin 0.5 mg/dL (0.2-1.3); Total Protein 6.1 g/dL (6.3-8.2)
[2023-04-27] MEDS: ALPRAZolam 0.25 MG TAB PEG/G-TUBE PRN (09:55)
[2023-04-27 10:57] VITALS: BMI 23.7
[2023-04-27] MEDS: PANTOPRAZOLE 40 MG TABLET PO SCH (12:05)
--- NOTE | 2023-04-27 12:12 | P.CONS ---
History of Present Illness - Reason for Consult Consult date: 04/27/23 Rectal bleed Requesting physician: Jyotsna Rodrigues - Chief Complaint fever - History of Present Illness This a pleasant 77-year-old male who presented to the emergency department 3 days ago with concerns for fever and chills. Patient states he had fever and chills as high as 102.6 at home for 3 days prior to coming into the emergency department. He has a past medical history with recent necrotizing pancreatitis status post surgery, GJ tube and pigtail catheter for drainage of fluid collection diagnosed in January of this year. He believes the pancreatitis was related to underlying alcohol use. Patient was drinking 3-4 days a week. He was sent to [facility] for further evaluation and treatment he continues to follow with [facility]. He is on a clear liquid diet, and TPN. Other past medical history includes GERD, hyperlipidemia, hypertension, basal cell carcinoma and osteoarthritis. He states since his surgery he has been nauseous every day. He has a decreased appetite, they only have him on clear liquid diet, he has 2-3 loose bowel movements daily and apparently this morning he had a bowel movement and had noticed some bright red blood in the toilet after having a bowel movement. He notified nursing and gastroenterology was consulted. He states he had another large loose bowel movement without any bleeding. He denies any anticoagulation. He states his last colonoscopy was about 5 years ago done at [facility] which was normal and told he should have a repeat in 7 years. He denied any pain with bowel movement no abdominal pain or cramping noted. Yesterday's CBC WBC 2.8 hemoglobin 12 hematocrit 37 platelet count 135,000 sodium, today's currently pending. Today's labs sodium 138 potassium 4.6P 123 creatinine 0.5 magnesium 2.1 total bilirubin 0.5 AST 28 AST 32 alkaline phosphatase 98. Patient currently denies any abdominal pain or cramping, has had no further bowel movements today, no fevers or chills. He does have nausea but no vomiting. Preliminary blood cultures negative. Review of Systems REVIEW OF SYSTEMS: CARDIOPULMONARY: No chest pain or shortness of breath. Gastrointestinal: No abdominal pain. Nausea with no vomiting. No hematemesis, coffee-ground emesis. Patient has chronic diarrhea, 2-3 loose bowel movements daily. This morning had one loose bowel movement with notable bright red blood in toilet. GENITOURINARY: No dysuria or hematuria. MUSCULOSKELETAL: Reports normal range of motion., Joint pain. SKIN: No rashes. No jaundice. ENDOCRINE: Patient had fevers and chills prior to admission. No excessive weight gain or loss. No polydipsia or polyuria. PSYCHIATRIC: Unremarkable. NEUROLOGY: No change in mental status. Denies dizziness, headache. ENT: Vision unremarkable. CONSTITUTIONAL: Significant weight loss since surgery and recent fever and chills. Past Medical History Past Medical History: Cancer, GERD/Reflux, Hyperlipidemia, Hypertension, Osteoarthritis (OA) Additional Past Medical History / Comment(s): pneumothorax, skin cancer-basal cell History of Any Multi-Drug Resistant Organisms: None Reported Past Surgical History: Cholecystectomy, Orthopedic Surgery Additional Past Surgical History / Comment(s): left thumb ligament reattached,rt rotator cuff repair, left knee surgery, basal cell removal - face, abdominal surgery, peg tube placement Past Anesthesia/Blood Transfusion Reactions: No Reported Reaction Past Psychological History: No Psychological Hx Reported Smoking Status: Former smoker Past Alcohol Use History: None Reported Past Drug Use History: None Reported - Past Family History Mother Family Medical History: Cancer Medications and Allergies Home Medications Medication Instructions Recorded Confirmed Type Simvastatin [Zocor] 20 mg PEG/G-TUBE HS 09/18/14 04/24/23 History Baclofen 10 mg PEG/G-TUBE HS PRN 01/21/21 04/24/23 History Omeprazole [PriLOSEC] 20 mg PO DAILY@1200 01/21/21 04/24/23 History Sildenafil [Revatio] 20 mg PO DAILY PRN 04/17/21 04/24/23 History ALPRAZolam [Xanax] 0.25 mg PEG/G-TUBE Q8H PRN 04/24/23 04/24/23 History Ondansetron [Zofran] 4 mg PEG/G-TUBE Q8HR PRN 04/24/23 04/24/23 History Allergies Allergy/AdvReac Type Severity Reaction Status Date / Time fentanyl Allergy Nausea & Verified 04/24/23 18:25 Vomiting tramadol Allergy Nausea & Verified 04/24/23 18:25 Vomiting codeine AdvReac Nausea & Verified 04/24/23 18:25 Vomiting hydrocodone bitartrate AdvReac Nausea & Verified 04/24/23 18:25 [From [facility]] Vomiting Physical Exam Vitals: Vital Signs Temp Pulse Resp BP Pulse Ox 04/27/23 07:00 97.4 F L 96 16 126/81 96 04/27/23 02:17 97.9 F 86 15 124/79 98 04/26/23 19:46 97.7 F 92 15 119/82 96 04/26/23 15:40 97.5 F L 82 16 110/65 96 Intake and Output 04/26/23 04/27/23 04/27/23 22:59 06:59 14:59 Output Total 300 Balance -300 Output: Urine 300 Other: # Voids 2 Weight 79.379 kg General appearance: The patient is alert, oriented, appears in no acute distress. HET: Head is normocephalic and atraumatic. Conjunctiva pink. Sclera anicteric. Neck: Supple without lymphadenopathy. Trachea midline. Heart: Regular. Lungs: Equal expansion, normal respiratory effort. Abdomen: Soft, nontender, nondistended. GJ tube left upper abdomen, catheter right mid abdomen. Skin: No rashes. No jaundice. Extremities: Normal skin color and turgor. No pedal edema. Neurological: No focal deficits. Alert and oriented x3. Results CBC & Chem 7: 04/26/23 08:03 04/27/23 06:00 Labs: Abnormal Lab Results - Last 24 Hours (Table) 04/27/23 Range/Units 06:00 Chloride 108 H (98-107) mmol/L Carbon Dioxide 21 L (22-30) mmol/L BUN 23 H (9-20) mg/dL Creatinine 0.53 L (0.66-1.25) mg/dL Glucose 136 H (74-99) mg/dL Total Protein 6.1 L (6.3-8.2) g/dL Albumin 2.9 L (3.5-5.0) g/dL Microbiology - Last 24 Hours (Table) 04/24/23 17:00 Blood Culture - Preliminary Blood 04/24/23 17:00 Blood Culture - Preliminary Blood CT scan - abdomen: report reviewed (Redemonstration of chronic findings of necrotizing pancreatitis with interval improvement in multiple fluid collections and inflammatory changes which were seen on prior exams. Stable positioning of intra-abdominal pigtail catheter) Assessment and Plan (1) Rectal bleeding Narrative/Plan: 67-year-old male with recent diagnosis of necrotizing pancreatitis followed by abdominal surgery, PEG tube placement and pigtail placement following with [facility] presented for fevers and chills. Patient is currently only on a clear liquid diet with TPN and PEG tube feedings. He has had loose bowel movements since his surgery in January. States that he has 2-3 loose bowel movements daily. This morning he bowel movement and had noted some bright red blood in the toilet. Denies any previous history of hemorrhoids, denied pain with bowel movement. Colonoscopies are up-to-date with his last one being 5 ye ars ago with a repeat due in 2 years. On any anticoagulation, unclear etiology however likely possible hemorrhoid, fissure or irritation from chronic diarrhea. We'll add hydrocortisone cream twice daily. Patient has no further rectal bleeding can defer colonoscopy. Current Visit: Yes Status: Acute Code(s): K62.5 - HEMORRHAGE OF ANUS AND RECTUM SNOMED Code(s): 33219827 (2) Necrotizing pancreatitis Current Visit: Yes Status: Acute Code(s): K85.91 - ACUTE PANCREATITIS WITH UNINFECTED NECROSIS, UNSPECIFIED SNOMED Code(s): 9486978 (3) Pancytopenia Current Visit: Yes Status: Acute Code(s): D61.818 - OTHER PANCYTOPENIA SNOMED Code(s): 822692363 (4) Chills Current Visit: Yes Status: Acute Code(s): R68.83 - CHILLS (WITHOUT FEVER) SNOMED Code(s): 43648892 Plan: 1. Continue symptomatic and supportive care 2. Continue clear liquid diet 3. Daily CBC 4. Monitor for rectal bleeding 5. Hydrocortisone cream per rectum twice daily 6. No plans on colonoscopy at this time. However patient continues to have rectal bleeding may need to reconsider. Thank you for this consultation, we will continue to follow. Dr. Jomar Alcantara I agree with the dictator's note, documented as a scribe by Gabbie Abbott.
--- NOTE | 2023-04-27 13:43 | P.PN ---
Subjective Progress Note Date: 04/26/23 Principal diagnosis: Fever possible abdominal source Patient is a 67-year-old male with a past medical history significant of hypertension hyperlipidemia osteoarthritis reflux patient did have history of necrotizing pancreatitis and apparently pancreatic pseudocyst for the patient has been treated to [facility] and the patient did have a drainage tube placement patient also have a PICC line for TPN, patient presenting to the ER with fever did have a CT abdominal pelvis features of necrotizing peritonitis but overall improvement. On today's evaluation that is 04/26/2023, the patient remains to be afebrile, the patient is breathing comfortably on room air without the need for supplemental oxygen and no shortness of breath, the patient denies having any chest pain or cough, patient denies nausea/vomiting /diarrhea and abdominal pain is controlled. Patient did have a white count of 2.81, creatinine 0.7, procalcitonin is 8.94 Objective - Vital Signs Vital signs: Vital Signs Temp 97.5 F L 04/26/23 07:00 Pulse 93 04/26/23 07:00 Resp 15 04/26/23 07:00 BP 120/73 04/26/23 07:00 Pulse Ox 93 L 04/26/23 07:00 FiO2 Intake & Output 04/25/23 04/26/23 04/26/23 18:59 06:59 18:59 Output Total 200 Balance -200 Weight 79.379 kg Output: Urine 200 Other: Voiding Method Urinal # Voids 1 - Exam GENERAL DESCRIPTION: An elderly male lying in bed in no distress RESPIRATORY SYSTEM: Unlabored breathing , decreased breath sounds at bases HEART: S1 S2 regular rate and rhythm , ABDOMEN: Soft , no tenderness EXTREMITIES: No edema feet - Labs CBC & Chem 7: 04/26/23 08:03 04/27/23 06:00 Labs: Abnormal Lab Results - Last 24 Hours (Table) 04/25/23 04/25/23 04/25/23 Range/Units 12:19 12:19 12:19 Plasma Lactic Acid Jimmy 0.6 L (0.7-2.0) mmol/L C-Reactive Protein 7.7 H (<1.0) mg/dL Procalcitonin 8.94 H (0.02-0.09) ng/mL Microbiology - Last 24 Hours (Table) 04/24/23 17:00 Blood Culture - Preliminary Blood 04/24/23 17:00 Blood Culture - Preliminary Blood Assessment and Plan (1) Acute febrile illness Current Visit: Yes Status: Acute Code(s): R50.9 - FEVER, UNSPECIFIED SNOMED Code(s): 713916986 (2) Necrotizing pancreatitis Current Visit: Yes Status: Acute Code(s): K85.91 - ACUTE PANCREATITIS WITH UNINFECTED NECROSIS, UNSPECIFIED SNOMED Code(s): 3038879 Plan: 1patient presenting to the hospital with fever in this patient with a complicated history of necrotizing pancreatitis and possibly pancreatic pseudocyst requiring drainage catheter placement patient also have a PICC line for TPN for more than a month now with the source of the fever possible PICC line as the patient is here abdominal pelvis shows overall improvement patient is breathing comfortably on room air and no urinary symptoms 2-blood culture obtained and so far pending 3-patient did have resolution the fever and will continue with the Zosyn while waiting for the culture to finalize Dictation was produced using [employer] dictation software. please excuse any grammatical, word or spelling errors.
--- NOTE | 2023-04-27 13:45 | P.PN ---
Subjective Progress Note Date: 04/27/23 Principal diagnosis: Fever possible abdominal source Patient is a 67-year-old male with a past medical history significant of hypertension hyperlipidemia osteoarthritis reflux patient did have history of necrotizing pancreatitis and apparently pancreatic pseudocyst for the patient has been treated to [facility] and the patient did have a drainage tube placement patient also have a PICC line for TPN, patient presenting to the ER with fever did have a CT abdominal pelvis features of necrotizing peritonitis but overall improvement. On today's evaluation that is 04/27/2023, the patient continues to be afebrile the patient is breathing comfortably on room air, the patient denies chest pain, shortness of breath or cough, patient denies any worsening abdominal pain, no nausea/vomiting , did have some diarrhea and bleeding per rectum for which she has been consulted Patient did have a white count of 2.81 as of yesterday, creatinine 0.53, procalcitonin is 8.94 Objective - Vital Signs Vital signs: Vital Signs Temp 97.4 F L 04/27/23 07:00 Pulse 96 04/27/23 07:00 Resp 16 04/27/23 07:00 BP 126/81 04/27/23 07:00 Pulse Ox 96 04/27/23 07:00 FiO2 Intake & Output 04/26/23 04/27/23 04/27/23 18:59 06:59 18:59 Output Total 300 Balance -300 Weight 79.379 kg Output: Urine 300 Other: Voiding Method Urinal # Voids 1 2 # Bowel Movements 1 - Exam GENERAL DESCRIPTION: An elderly male lying in bed in no distress RESPIRATORY SYSTEM: Unlabored breathing , decreased breath sounds at bases HEART: S1 S2 regular rate and rhythm , ABDOMEN: Soft , no tenderness EXTREMITIES: No edema feet - Labs CBC & Chem 7: 04/26/23 08:03 04/27/23 06:00 Labs: Abnormal Lab Results - Last 24 Hours (Table) 04/27/23 Range/Units 06:00 Chloride 108 H (98-107) mmol/L Carbon Dioxide 21 L (22-30) mmol/L BUN 23 H (9-20) mg/dL Creatinine 0.53 L (0.66-1.25) mg/dL Glucose 136 H (74-99) mg/dL Total Protein 6.1 L (6.3-8.2) g/dL Albumin 2.9 L (3.5-5.0) g/dL Microbiology - Last 24 Hours (Table) 04/24/23 17:00 Blood Culture - Preliminary Blood 04/24/23 17:00 Blood Culture - Preliminary Blood Assessment and Plan (1) Acute febrile illness Current Visit: Yes Status: Acute Code(s): R50.9 - FEVER, UNSPECIFIED SNOMED Code(s): 935490243 (2) Necrotizing pancreatitis Current Visit: Yes Status: Acute Code(s): K85.91 - ACUTE PANCREATITIS WITH UNINFECTED NECROSIS, UNSPECIFIED SNOMED Code(s): 1745726 Plan: 1patient presenting to the hospital with fever in this patient with a complicated history of necrotizing pancreatitis and possibly pancreatic pseudocyst requiring drainage catheter placement patient also have a PICC line for TPN for more than a month now with the source of the fever possible PICC line however the patient culture negative so for that we'll make a PICC line infection to be less likely possible source of the fever abdominal 2-patient did have resolution the fever and will continue with the Zosyn we will repeat his CBC and a procalcitonin with the a.m. labs Dictation was produced using [employer] dictation software. please excuse any gramm atical, word or spelling errors. Time with Patient: Less than 30
[2023-04-27] MEDS: BACLOFEN 10 MG TAB PEG/G-TUBE PRN (20:14)
[2023-04-27] MEDS: ATORVASTATIN 10 MG TAB PEG/G-TUBE SCH (20:14)
[2023-04-27] MEDS: HYDROCORTISONE 2.5% RECTAL CREAM 30 GM TUBE RECTAL SCH (20:19)
--- NOTE | 2023-04-28 00:10 | P.PN ---
Subjective Progress Note Date: 04/28/23 This is a pleasant 67-year-old male admitted due to fever chills recent history of necrotizing pancreatitis patient has a drainage tube in place coming from the mid abdomen as well as a GJ drain for TPN and nutrition. His main care has been at [facility]. His pro-calcitonin was elevated at 8.94. Patient has IV zosyn in place with ID following. Patient reports no more episodes of fever/chills so far. Concern for PICC line as source of infection and blood cultures are pending. 04/27/2023 Patient is evaluated today resting in bed. Had en episode of bright red rectal bleeding today followed by a large loose stool with no bleeding noted. He denies any known history of hemorrhoids. He does have loose stool at basline. Continues on TPN brought in from home. Hemoglobin is stable today at 12.1. Remains on IV zosyn. Review of Systems Constitutional: Denied any fatigue denied any fever. Cardio vascular: denied any chest pain, palpitations Gastrointestinal: denied any nausea, vomiting, diarrhea Pulmonary: Denied any shortness of breath cough Neurologic denied any new focal deficits All inpatient medications were reviewed and appropriate changes in these medications as dictated in the interval history and assessment and plan. PHYSICAL EXAMINATION: GENERAL: The patient is alert and oriented x3, not in any acute distress. Well developed, well nourished. HEENT: Pupils are round and equally reacting to light. EOMI. No scleral icterus. No conjunctival pallor. Normocephalic, atraumatic. No pharyngeal erythema. No thyromegaly. CARDIOVASCULAR: S1 and S2 present. No murmurs, rubs, or gallops. PULMONARY: Chest is clear to auscultation, no wheezing or crackles. ABDOMEN: Soft, nontender, nondistended, normoactive bowel sounds. No palpable organomegaly. GJ tube in place clean and dry surrounding access site. Pigtail catheter in place mid abdomen to drainage bag. MUSCULOSKELETAL: No joint swelling or deformity. EXTREMITIES: No cyanosis, clubbing, or pedal edema. NEUROLOGICAL: Gross neurological examination did not reveal any focal deficits. SKIN: No rashes. Assessment Fever/chills; possible sepsis pending blood cultures source of infection possibly PICC line. Necrotizing pancreatitis diagnosed in January of this year. F/U CT shows improvement in pseudocyst at the pancreatic tail. Inflammatory changes and fluid collection have also improved on imaging. Pigtail drainage catheter remains in place. Rectal bleeding possibly hemorrhoids. Hypertension Hyperlipidemia Anxiety GERD/gastritis; continue with PPI Former Smoker GI prophylaxis Full Code Plan Continue with clear liquid diet and TPN for nutrition through GJ tube Pigtail catheter remains in place and draining Continue IV zosyn with cultures pending awaiting final blood culture GI consultation for the rectal bleeding. The impression and plan of care has been dictated by Jyotsna Rodrigues, Nurse Practitioner as directed. Dr. Conchis MD I have performed a history and physical examination and medical decision making of this patient, discussed the same with the dictator, and agree with the dictators assessment and plan as written, documented as a scribe. Based on total visit time, I have performed more than 50% of this visit. Objective - Vital Signs Vital signs: Vital Signs Temp 97.7 F 04/27/23 19:59 Pulse 92 04/27/23 19:59 Resp 16 04/27/23 19:59 BP 120/79 04/27/23 19:59 Pulse Ox 94 L 04/27/23 19:59 FiO2 Intake & Output 04/27/23 04/27/23 04/28/23 06:59 18:59 06:59 Output Total 300 Balance -300 Weight 79.379 kg Output: Urine 300 Other: # Voids 2 1 # Bowel Movements 1 - Labs CBC & Chem 7: 04/26/23 08:03 04/27/23 06:00 Labs: Abnormal Lab Results - Last 24 Hours (Table) 04/27/23 Range/Units 06:00 Chloride 108 H (98-107) mmol/L Carbon Dioxide 21 L (22-30) mmol/L BUN 23 H (9-20) mg/dL Creatinine 0.53 L (0.66-1.25) mg/dL Glucose 136 H (74-99) mg/dL Total Protein 6.1 L (6.3-8.2) g/dL Albumin 2.9 L (3.5-5.0) g/dL Triglycerides 180.00 H (0.00-149.00) mg/dL Microbiology - Last 24 Hours (Table) 04/24/23 17:00 Blood Culture - Preliminary Blood 04/24/23 17:00 Blood Culture - Preliminary Blood Assessment and Plan Time with Patient: Less than 30
[2023-04-28] MEDS: PIPERACILLIN-TAZOBACTAM 3.375 GM in SODIUM CHLORIDE 0.9% 100 ML IVPB SCH ×3 (02:30→18:32)
[2023-04-28 06:48] LABS: Basophils % (A) 0 %; Eosinophils # (A) 0.2 k/uL (0-0.7); Eosinophils % (A) 4 %; HCT 38.8 % (39.0-53.0); HGB 12.4 gm/dL (13.0-17.5); Lymphocytes # (A) 0.7 k/uL (1.0-4.8); Lymphocytes % (A) 20 %; MCH 28.5 pg (25.0-35.0); MCV 88.8 fL (80.0-100.0); Monocytes # (A) 0.3 k/uL (0-1.0); Monocytes % (A) 7 %; Neutrophils # (A) 2.3 k/uL (1.3-7.7); Neutrophils % (A) 66 %; RBC 4.36 m/uL (4.30-5.90); WBC 3.5 k/uL (3.8-10.6)
[2023-04-28 06:51] LABS: Platelet Count 162 k/uL (150-450)
[2023-04-28] MEDS: HYDROCORTISONE 2.5% RECTAL CREAM 30 GM TUBE RECTAL SCH ×2 (08:40→20:17)
--- NOTE | 2023-04-28 11:30 | P.PN ---
Subjective Progress Note Date: 04/28/23 Principal diagnosis: Fever, chills, GI bleed This a pleasant 77-year-old male who presented to the emergency department 3 days ago with concerns for fever and chills. Patient states he had fever and chills as high as 102.6 at home for 3 days [facility] He has a past medical history with recent necrotizing pancreatitis status post surgery, GJ tube and pigtail catheter for drainage of fluid collection diagnosed in January of this year. He believes the pancreatitis was related to underlying alcohol use. Patient was drinking 3-4 days a week. He was sent to [facility] for further evaluation and treatment he continues to follow with [facility]. He is on a clear liquid diet, and TPN. Other past medical history includes GERD, hyperlipidemia, hypertension, basal cell carcinoma and osteoarthritis. He states since his surgery he has been nauseous every day. He has a decreased appetite, they only have him on clear liquid diet, he has 2-3 loose bowel movements daily and apparently this morning he had a bowel movement and had noticed some bright red blood in the toilet after having a bowel movement. He notified nursing and gastroenterology was consulted. He states he had another large loose bowel movement without any bleeding. He denies any anticoagulation. He states his last colonoscopy was about 5 years ago done at [facility] which was normal and told he should have a repeat in 7 years. He denied any pain with bowel movement no abdominal pain or cramping noted. Yesterday's CBC WBC 2.8 hemoglobin 12 hematocrit 37 platelet count 135,000 sodium, today's currently pending. Today's labs sodium 138 potassium 4.6P 123 creatinine 0.5 magnesium 2.1 total bilirubin 0.5 AST 28 AST 32 alkaline phosphatase 98. Patient currently denies any abdominal pain or cramping, has had no further bowel movements today, no fevers or chills. He does have nausea but no vomiting. Preliminary blood cultures n egative. 04/28/2023 Patient is seen and examined today as a follow-up. Apparently patient had furt her bleeding from the rectum through the night and again this morning. Nursing reported it as bright red through the night this morning but has more of a maroon color, with a thick ugly consistency. He denies any abdominal pain, no nausea or vomiting. Hemoglobin was stable at 12.4 actually up from 12.1 yesterday. Output from his pigtail catheter is clear, output from his JG tube is green bile. He is afebrile. Objective - Vital Signs Vital signs: Vital Signs Temp 97.4 F L 04/28/23 07:00 Pulse 91 04/28/23 07:00 Resp 16 04/28/23 07:00 BP 131/78 04/28/23 07:00 Pulse Ox 95 04/28/23 07:00 FiO2 Intake & Output 04/27/23 04/28/23 04/28/23 18:59 06:59 18:59 Output Total 501 Balance -501 Weight 79.379 kg Output: Urine 501 Other: # Voids 1 # Bowel Movements 1 1 - Exam General appearance: The patient is alert, oriented, appears in no acute distress. HET: Head is normocephalic and atraumatic. Conjunctiva pink. Sclera anicteric. Neck: Supple without lymphadenopathy. Abdomen: Soft, nontender, catheter right mid abdomen, JG-tube left upper abdomen Extremities: Normal skin color and turgor. No pedal edema Skin: No rashes, no jaundice Neurological: No focal deficits. Alert and oriented. - Labs CBC & Chem 7: 04/28/23 05:51 04/27/23 06:00 Labs: Abnormal Lab Results - Last 24 Hours (Table) 04/27/23 04/28/23 Range/Units 06:00 05:51 WBC 3.5 L (3.8-10.6) k/uL Hgb 12.4 L (13.0-17.5) gm/dL Hct 38.8 L (39.0-53.0) % RDW 16.0 H (11.5-15.5) % Lymphocytes # 0.7 L (1.0-4.8) k/uL Chloride 108 H (98-107) mmol/L Carbon Dioxide 21 L (22-30) mmol/L BUN 23 H (9-20) mg/dL Creatinine 0.53 L (0.66-1.25) mg/dL Glucose 136 H (74-99) mg/dL Total Protein 6.1 L (6.3-8.2) g/dL Albumin 2.9 L (3.5-5.0) g/dL Triglycerides 180.00 H (0.00-149.00) mg/dL Microbiology - Last 24 Hours (Table) 04/24/23 17:00 Blood Culture - Preliminary Blood 04/24/23 17:00 Blood Culture - Preliminary Blood Assessment and Plan (1) GI bleed Narrative/Plan: 67-year-old male presenting for fevers and chills currently being followed by infectious disease for ruling out abdominal source. Yesterday patient was seen for one episode of acute bright red blood per rectum with bowel movement thought to be possible hemorrhoid or fissure related to patient's chronic diarrhea and increased amount of diarrhea. Apparently through the night he had more bowel movements however they were bright red he states moderate amount turning also more of a maroon color, almost a creamy every week consistency with no stool present appears could be more of a GI source from the pancreas or necrotizing pancreatitis. Concern for abdominal bleed and recommended transfer to [facility] we are patient is under care for necrotizing pancreatitis and J G- tube. At first patient declined transfer and stated he would like EGD and colonoscopy at this hospital. Patient orders for prostate and procedures enter ed. Patient then decided to take a recommendation for transfer to [facility] due to his significant history with necrotizing pancreatitis and surgeries with concern for GI bleed. Primary medical team to initiate transfer. Current Visit: Yes Status: Acute Code(s): K92.2 - GASTROINTESTINAL HEMORRHAGE, UNSPECIFIED SNOMED Code(s): 32793064 (2) Rectal bleeding Current Visit: Yes Status: Acute Code(s): K62.5 - HEMORRHAGE OF ANUS AND RECTUM SNOMED Code(s): 74793606 (3) Necrotizing pancreatitis Current Visit: Yes Status: Acute Code(s): K85.91 - ACUTE PANCREATITIS WITH UNINFECTED NECROSIS, UNSPECIFIED SNOMED Code(s): 7088953 (4) Pancytopenia Current Visit: Yes Status: Acute Code(s): D61.818 - OTHER PANCYTOPENIA SNOMED Code(s): 793430062 (5) Chills Current Visit: Yes Status: Acute Code(s): R68.83 - CHILLS (WITHOUT FEVER) SNOMED Code(s): 07070125 Plan: 1. Continue symptomatic and supportive care 2. Clear liquid diet, TPN per dietitian recommendations 3. Daily CBC, transfuse for hemoglobin less than 7 4. Protonix 40 mg daily for GI prophylaxis 5. C. diff ordered 6. Recommend transfer to [facility] where patient surgeons are and following for necrotizing pancreatitis, concern for possible bleed coming from pancreas, patient has catheters placed. Patient also has J G-tube in place as well 7. Thank you for this consultation. Dr. Jomar Alcantara I agree with the dictator's note, documented as a scribe by Gabbie Abbott.
[2023-04-28] MEDS: PANTOPRAZOLE 40 MG TABLET PO SCH (11:43)
[2023-04-28] MEDS ORDERED: PEG 3350 (236 GM/BTL) + LYTES 4,000 ML BOTTLE PO ONE (12:00)
--- NOTE | 2023-04-28 12:11 | P.PN ---
Subjective Progress Note Date: 04/28/23 Principal diagnosis: Fever possible abdominal source Patient is a 67-year-old male with a past medical history significant of hypertension hyperlipidemia osteoarthritis reflux patient did have history of necrotizing pancreatitis and apparently pancreatic pseudocyst for the patient has been treated to [facility] and the patient did have a drainage tube placement patient also have a PICC line for TPN, patient presenting to the ER with fever did have a CT abdominal pelvis features of necrotizing peritonitis but overall improvement. On today's evaluation that is 04/28/2023, the patient remains to be afebrile the patient is breathing comfortably on room air, the patient denies chest pain, shortness of breath or cough, patient denies nausea/vomiting , mild abdominal pain and did have some diarrhea and bleeding per rectum Patient did have a white count of 3.5, creatinine 0.53, procalcitonin is 8.94, blood culture negative Objective - Vital Signs Vital signs: Vital Signs Temp 97.4 F L 04/28/23 07:00 Pulse 91 04/28/23 07:00 Resp 16 04/28/23 07:00 BP 131/78 04/28/23 07:00 Pulse Ox 95 04/28/23 07:00 FiO2 Intake & Output 04/27/23 04/28/23 04/28/23 18:59 06:59 18:59 Output Total 501 Balance -501 Weight 79.379 kg Output: Urine 501 Other: # Voids 1 # Bowel Movements 1 1 - Exam GENERAL DESCRIPTION: An elderly male lying in bed in no distress RESPIRATORY SYSTEM: Unlabored breathing , decreased breath sounds at bases HEART: S1 S2 regular rate and rhythm , ABDOMEN: Soft , no tenderness EXTREMITIES: No edema feet - Labs CBC & Chem 7: 04/28/23 05:51 04/27/23 06:00 Labs: Abnormal Lab Results - Last 24 Hours (Table) 04/27/23 04/28/23 04/28/23 Range/Units 06:00 05:51 05:51 WBC 3.5 L (3.8-10.6) k/uL Hgb 12.4 L (13.0-17.5) gm/dL Hct 38.8 L (39.0-53.0) % RDW 16.0 H (11.5-15.5) % Lymphocytes # 0.7 L (1.0-4.8) k/uL C-Reactive Protein (0.00-0.80) mg/dL Triglycerides 180.00 H (0.00-149.00) mg/dL Procalcitonin 1.34 H (0.02-0.09) ng/mL 04/28/23 Range/Units 05:51 WBC (3.8-10.6) k/uL Hgb (13.0-17.5) gm/dL Hct (39.0-53.0) % RDW (11.5-15.5) % Lymphocytes # (1.0-4.8) k/uL C-Reactive Protein 1.60 H (0.00-0.80) mg/dL Triglycerides (0.00-149.00) mg/dL Procalcitonin (0.02-0.09) ng/mL Microbiology - Last 24 Hours (Table) 04/24/23 17:00 Blood Culture - Preliminary Blood 04/24/23 17:00 Blood Culture - Preliminary Blood Assessment and Plan (1) Acute febrile illness Current Visit: Yes Status: Acute Code(s): R50.9 - FEVER, UNSPECIFIED SNOMED Code(s): 817362215 (2) Necrotizing pancreatitis Current Visit: Yes Status: Acute Code(s): K85.91 - ACUTE PANCREATITIS WITH UNINFECTED NECROSIS, UNSPECIFIED SNOMED Code(s): 8085458 Plan: 1patient presenting to the hospital with fever in this patient with a complicated history of necrotizing pancreatitis and possibly pancreatic pseudocyst requiring drainage catheter placement patient also have a PICC line for TPN for more than a month now with the source of the fever possible PICC line however the patient culture negative so for that we'll make a PICC line infection to be less likely possible source of the fever abdominal 2-patient did have resolution the fever and patient is getting transferred to [facility] per GI, the will continue with the Zosyn until the patient is evaluated by ID services at that facility Dictation was produced using [employer] dictation software. please excuse any grammatical, word or spelling errors. Time with Patient: Less than 30
[2023-04-28 15:05] VITALS: RESP 18
--- NOTE | 2023-04-28 15:52 | P.TRANS ---
Providers Date of admission: 04/26/23 12:41 Attending physician: Shirley Gregg Consults: 04/25/23 10:55 Consult Physician Routine Consulting Provider: Chris Higuera Consult Reason/Comments: Fever and chills of unknown source Do you want consulting provider notified?: Yes 04/27/23 10:37 Consult Physician Routine Consulting Provider: Renate Alcantara Consult Reason/Comments: rectal bleeding Do you want consulting provider notified?: Yes Primary care physician: Sade Esteves Hospital Course: Final Diagnosis Rectal bleeding possibly hemorrhoids. Fever/chills; possible sepsis, blood cultures are negative. procalcitonin level improved from 8.9 to 1.3. Necrotizing pancreatitis diagnosed in January of this year. F/U CT shows improvement in pseudocyst at the pancreatic tail. Inflammatory changes and fluid collection have also improved on imaging. Pigtail drainage catheter shows stable placement. Hypertension Hyperlipidemia Anxiety GERD/gastritis; continue with PPI Former Smoker GI prophylaxis Full Code Patient is stable for transfer to [facility] has been accepted by his known specialist Dr. Robbie Nicholson. There is concern for acute GI bleeding. Additionally patient will require ID consultation for further antibiotic management and will continue on IV zosyn. -TPN runs for a total of 14 hrs at 80 ml for first/last 2 hrs and 160 ml for 10 hours with D70%/15% AA. He receives dex/AA solution on T, Th, Sat and lipids on Sun, M, W, F. This is the pt's TPN regimen at home and he is continuing to use his TPN supplies from home while in the hospital. RD is unaware of lipid solution that is used because he did not have lipids in room at time of assessment. Hospital Course This is a pleasant 67-year-old male admitted due to fever chills with T Max of 102. Was recently diagnosed with necrotizing pancreatitis in January, patient has a drainage tube in place coming from the mid abdomen as well as a GJ drain for TPN and nutrition. Patient states that he has constant nausea and diarrhea due to being on a liquid diet. Patient denies headache, sore throat, neck pain or stiffness, chest pain, dyspnea, palpitations, dizziness, abdominal pain, bloody or melanotic stool, dysuria/hematuria/urinary frequency/urinary symptoms, or any other symptoms or complaints. CT abdomen/pelvis shows improving fluid collections and inflammatory changes. His main care has been at [facility] and follows with Dr. Nicholson. Patient had features of sepsis on admission and was admitted to the hospital with consult placed to infectious disease. His pro- calcitonin was elevated at 8.94. Patient has IV zosyn in place with ID following. Concern for PICC line as source of infection and blood cultures are pending final cultures however they are negative at the 4 day rony. Patient reports no more episodes of fever/chills so far. Yesterday he had an episode of acute right blood per rectum with BM possible hemorrhoid or fissure related to chronic diarrhea. Patient now continues to have more bright red bowel movements/almost maroon like in color. GI did evaluate the patient and felt the source of the GI bleeding is more likely pancreas/necrotizing pancreatitis source. GI is recommending transfer to [facility] for patient to be under the care of his own surgeon as patient does have multiple catheters placed including J G-Tube and pigtail drainage catheter. Patient continues on TPN through the PEG tube and on clear liquid diet. Most recent labs are showing a count of 3.5, hemoglobin 12.4, sodium 138, potassium 4.6, chloride 108, CO2 21, BUN 23, creatinine 0.53. Glucose 136, CRP 1.60, triglycerides of 180 and pro- calcitonin of 1.34. He is afebrile, heart rate 96, blood pressure 111/77, 96% room air. He is alert and oriented 3 no focal neurological deficits. Please see medication reconciliation for a list of current medication. Thank you for allowing us to participate in the care of this patient. The impression and plan of care has been dictated by Nurse Kayla Carlos as directed. Dr. Conchis MD I have performed a history and physical examination and medical decision making of this patient, discussed the same with the dictator, and agree with the dict ators assessment and plan as written, documented as a scribe. Based on total visit time, I have performed more than 50% of this visit. Patient Condition at Discharge: Fair Plan - Transfer Summary Transfer Medications: Active Medications Generic Name Dose Route Start Last Admin Trade Name Freq PRN Reason Stop Dose Admin Alprazolam 0.25 mg 04/25/23 10:58 04/27/23 09:55 Alprazolam 0.25 Mg Tab PEG/G-TUBE 0.25 mg Q8H PRN Administration Anxiety Atorvastatin Calcium 10 mg 04/25/23 21:00 04/27/23 20:14 Atorvastatin 10 Mg Tab PEG/G-TUBE 10 mg HS GABINO Administration Baclofen 10 mg 04/25/23 10:58 04/27/23 20:14 Baclofen 10 Mg Tab PEG/G-TUBE 10 mg HS PRN Administration SLEEP Hydrocortisone 1 applic 04/27/23 21:00 04/28/23 08:40 Hydrocortisone 2.5% Rectal Cream 30 Gm Tube RECTAL Not Given BID GABINO Piperacillin Sod/Tazobactam 100 mls @ 25 mls/hr 04/25/23 11:00 04/28/23 11:43 Sod 3.375 gm/ Sodium Chloride IVPB 25 mls/hr Q8H GABINO Administration Protocol Naloxone HCl 0.2 mg 04/24/23 22:04 Naloxone 0.4 Mg/Ml 1 Ml Vial IV Q2M PRN Opioid Reversal Ondansetron HCl 4 mg 04/25/23 10:58 Ondansetron 4 Mg Tab PEG/G-TUBE Q8HR PRN Nausea And Vomiting Pantoprazole Sodium 40 mg 04/25/23 12:00 04/28/23 11:43 Pantoprazole 40 Mg Tablet PO 40 mg DAILY@1200 GABINO Administration Follow up Appointment(s)/Referral(s): Sade Esteves MD [Primary Care Provider] - 1-2 days
[2023-04-28] MEDS: ATORVASTATIN 10 MG TAB PEG/G-TUBE SCH (20:26)
[2023-04-28] MEDS: BACLOFEN 10 MG TAB PEG/G-TUBE PRN (20:26)
[2023-04-28 21:22] VITALS: BP 125/85; PULSE 99; TEMP 98
== END 2023-04-28 22:33 | disposition short-term general hospital (02) | DRG 871 ==
LOC: EC 16:17 → 6NMEDSUR 22:04 → OBSVTOIN 04-26 12:41
PROVIDERS: ADMIT Internal Medicine; ATTEND Internal Medicine
DX: A41.89 Other specified sepsis (principal); K85.91 Acute pancreatitis with uninfected necrosis, unspecified; D61.818 Other pancytopenia; K86.3 Pseudocyst of pancreas; I10 Essential (primary) hypertension; E78.5 Hyperlipidemia, unspecified; F41.9 Anxiety disorder, unspecified; K21.9 Gastro-esophageal reflux disease without esophagitis; K64.8 Other hemorrhoids; K29.70 Gastritis, unspecified, without bleeding; I25.10 Atherosclerotic heart disease of native coronary artery without angina pectoris; K52.9 Noninfective gastroenteritis and colitis, unspecified; Z79.899 Other long term (current) drug therapy; Z85.828 Personal history of other malignant neoplasm of skin; Z93.1 Gastrostomy status; Z90.49 Acquired absence of other specified parts of digestive tract
CPT/HCPCS: 36415; 71045; 74177; 80048; 80053; 81003; 82150; 83605; 83690; 83735; 84100; 84145; 84478; 84484; 85025; 85610; 85730; 86140; 87040; 87324; 87636; 93005; 94760; 96365; 96366; 96375; 99285